=== PATIENT | female | born 1955 | race Caucasian/White ===

== ENCOUNTER 2016-08-09 23:49 | Emergency (ER) | payer OTHER ==
[~2016-08-09] VITALS: Ht 162.6 cm; Wt 77.6 kg
[~2016-08-09 23:49] MED LIST: AMOXICILLIN500 M2 PO; ANTIVERT 25 MG25 M1 PO; ASPIRIN EC81 M1 PO; ATORVASTATIN CA40 M1 PO; AUGMENTIN 875-1 EACH PO; BUDESONIDE3 MG PO; CLORAZEPATE DI7.5 M1 PO; CLORAZEPATE DI7.5 MG PO; DOXYCYCLINE100 MG PO; DULOXETINE HCL20 MG PO; DULOXETINE HCL30 MG PO; FERROUS SULFAT324 M1 PO; FLEXERIL10 MG PO; FOLIC ACID 1 MG PO; GABAPENTIN600 M1 PO; HCTZ/TRIAMTEREN1 TA3 PO; KETOROLAC TROME10 M1 PO; LYRICA25 M1 PO; MEDROL DOSEPAK1 PAC PO; MEDROL4 M2 PO; MOTRIN 600 MG600 MG PO; NEURONTIN300 M1 PO; NORCO 5-325 TA1 EACH PO; OSCAL ULTRA 6001 TAB PO; PANTOPRAZOLE SO40 M1 PO; PANTOPRAZOLE SO40 MG PO; PREDNISOLO15 MG/5 M4 PO; PROMETH/CODEIN120 ML PO; TOBRADEX OPH SOL5 ML OP; TORADOL10 MG PO; TRAMADOL HCL50 M1 PO; TRAMADOL50 MG PO; TRIAMTERENE/HCT1 TAB PO; TYLENOL325 MG PO; VENTOLIN HFA18 GM PO; VICODIN 5-3001 EACH PO; ZITHROMAX Z PA250 MG PO; ZITHROMAX250 M2 PO; ZOFRAN ODT4 MG SL; ZOFRAN4 M2 SL; ZOFRAN4 MG PO; [UNRECOGNIZED DRUG - OTHER] PO
--- NOTE | 2016-08-10 01:27 | ED GENERAL ADULT ---
History of Present Illness General Chief Complaint: General Adult Stated Complaint: C/O +N WEAKNESS X'S 2 HRSFAMILY QUESTION ? FLU Source: patient Exam Limitations: no limitations Vital Signs & Intake/Output Vital Signs & Intake/Output Vital Signs Date Time Temp Pulse Resp B/P Pulse O2 O2 Flow FiO2 Ox Delivery Rate 08/10 0351 98.8 89 18 138/84 96 Room Air 08/10 0203 93 08/10 0051 99.9 102 20 137/83 95 Room Air Allergies Coded Allergies: NO KNOWN ALLERGIES (12/08/15) Reconcile Medications Amoxicillin/Potassium Clav (Augmentin 875-125 Tablet) 875 MG-125 MG TABLET 1 TAB PO BID bronchitis Azithromycin (Zithromax) 250 MG TABLET 1 DP PO AD URI 2 the first day followed by 1 for days 2-5 Duloxetine HCl 30 MG CAPSULE.DR 1 CAP PO BEDTIME Neuropathy Gabapentin 600 MG TABLET 1 TAB PO TID Neuropathy Ibuprofen 800 MG TABLET 1 TAB PO TID body aches/fever Ketorolac Tromethamine 10 MG TABLET 1 TAB PO Q6P PRN BREAKTHROUGH PAIN Ondansetron (Zofran Odt) 4 MG TAB.RAPDIS 1 TAB SL TID nausea Pantoprazole Sodium 40 MG TABLET.DR 1 TAB PO DAILY GERD (Reported) Triage Note: 61yo FEMALE TO TRIAGE W/CO NAUSEA, CHILLS X 2 HRS. ALSO SOME BURNING WITH URINATION TONITE. Triage Nurses Notes Reviewed? yes Onset: Gradual Duration: day(s): Timing: recent history Injury Environment: home Severity: moderate Modifying Factors: Improves With: rest. Associated Symptoms: cough HPI: 61-year-old woman in prior good health presents with one-day history of body aches chills cough with small amount of phlegm that started yesterday evening. She notes that she smokes a half pack per day which has decreased. She is otherwise well has no chest pain diarrhea nausea vomiting. Past History Travel History Traveled to [place] past 21 day No Medical History Any Pertinent Medical History? see below for history Neurological: NEUROPATHY EENT: NONE Cardiovascular: NONE Respiratory: NONE Gastrointestinal: Crohn's disease, GERD Hepatic: NONE Renal: NONE Musculoskeletal: chronic back pain Psychiatric: NONE Endocrine: NONE Blood Disorders: NONE Cancer(s): NONE History of MRSA: No History of VRE: No History of CDIFF: No Surgical History Surgical History: COLON RESECTION Psychosocial History Who do you live with Family What is your primary language Bahraini Tobacco Use: Current Daily Use Daily Tobacco Use Amount/Type: => 5 Cigarettes daily Family History Family History, If Any: Relation not specified for: *No pertinent family history Hx Contributory? No Review of Systems Review of Systems Constitutional: Reports: no symptoms. EENTM: Reports: no symptoms. Respiratory: Reports: no symptoms. Cardiovascular: Reports: no symptoms. GI: Reports: no symptoms. Genitourinary: Reports: no symptoms. Musculoskeletal: Reports: no symptoms. Skin: Reports: no symptoms. Neurological/Psychological: Reports: no symptoms. Hematologic/Endocrine: Reports: no symptoms. Immunologic/Allergic: Reports: no symptoms. All Other Systems: Reviewed and Negative Physical Exam Physical Exam General Appearance: well developed/nourished, mild distress Head: atraumatic, normal appearance Eyes: Bilateral: normal appearance. Ears, Nose, Throat: normal pharynx, normal ENT inspection Neck: normal inspection, supple, full range of motion Respiratory: normal breath sounds, chest non-tender, no respiratory distress, quiet respiration, lungs clear Cardiovascular: regular rate/rhythm Gastrointestinal: normal bowel sounds, soft, non-tender, no organomegaly Back: normal inspection, normal range of motion Extremities: normal inspection, normal capillary refill, normal range of motion, no edema Neurologic/Psych: no motor/sensory deficits, awake, alert, oriented x 3 Skin: intact, normal color, warm/dry Core Measures ACS in differential dx? No CVA/TIA Diagnosis: No Severe Sepsis Present: No Septic Shock Present: No Progress Differential Diagnoses I considered the following diagnoses in my evaluation of the patient: viral syndrome versus bronchitis versus other Plan of Care: Orders Procedure Date/time Status URINALYSIS 08/10 0052 Complete RAPID VIRAL INFLUENZA A 08/09 2353 Complete Laboratory Tests 08/10/16 0100: Urinalysis LIGHT H, Urine Color YEL, Urine Clarity CLEAR, Urine pH 6.5, Ur Specific [place] 1.025, Urine Protein TRACE H, Urine Ketones NEG, Urine Nitrite NEG, Urine Bilirubin NEG, Urine Urobilinogen 0.2, Ur Leukocyte Esterase NEG, Ur Microscopic SEDIMENT EXAMINED, Urine RBC 1-3, Ur Epithelial Cells FEW, Urine Hemoglobin MOD H, Urine Glucose NEG Initial ED EKG: none Departure Departure Disposition: HOME OR SELF CARE Condition: Stable Clinical Impression Primary Impression: Bronchitis Secondary Impressions: Fever, Myalgia Referrals: JAMILAH TONG,RUPINDER York (PCP/Family) Departure Forms: Customer Survey General Discharge Information Prescriptions: Current Visit Scripts Amoxicillin/Potassium Clav (Augmentin 875-125 Tablet) 1 TAB PO BID #20 TAB Ibuprofen 1 TAB PO TID #30 TAB Ref 1 Ondansetron (Zofran Odt) 1 TAB SL TID #10 TAB Comments influenza negative. Critical Care Note Critical Care Note Critical Care Time: non-applicable
[2016-08-10] MEDS ORDERED: IBUPROFEN800 M1 PO (01:49)
[2016-08-10] MEDS ORDERED: AUGMENTIN 875-1 EACH PO (01:49)
[2016-08-10] MEDS ORDERED: ZOFRAN ODT4 M1 SL (01:50)
[2016-08-10 03:51] VITALS: BP 138/84
== END 2016-08-10 03:51 ==
LOC: ERH 23:49
DX: J40 Bronchitis, not specified as acute or chronic (principal); R50.9 Fever, unspecified; M79.1 Myalgia; Z72.0 Tobacco use
CPT/HCPCS: 1263; 1395; 81001; 87804; 87804-59; 96372; J1885; J3101; J3490

== ENCOUNTER 2016-09-17 11:24 | Emergency (ER) | payer OTHER ==
[~2016-09-17] VITALS: Ht 162.6 cm; Wt 77.6 kg
[~2016-09-17 11:24] MED LIST changes: +IBUPROFEN800 M1 PO; +ZOFRAN ODT4 M1 SL
[2016-09-17 11:34] VITALS: BP 108/70
--- NOTE | 2016-09-17 11:45 | ED UPPER/LOWER EXTREMITY COMPL ---
History of Present Illness General Chief Complaint: Lower Extremity Problems Stated Complaint: BILAT LEG PAIN Source: patient, family, old records Exam Limitations: no limitations Vital Signs & Intake/Output Vital Signs & Intake/Output Vital Signs Date Time Temp Pulse Resp B/P Pulse O2 O2 Flow FiO2 Ox Delivery Rate 09/17 1134 97.0 85 20 108/70 96 Room Air Allergies Coded Allergies: NO KNOWN ALLERGIES (09/17/16) Reconcile Medications Amoxicillin/Potassium Clav (Augmentin 875-125 Tablet) 875 MG-125 MG TABLET 1 TAB PO BID bronchitis Azithromycin (Zithromax) 250 MG TABLET 1 DP PO AD URI 2 the first day followed by 1 for days 2-5 Azithromycin (Zithromax) 250 MG TABLET 1 DP PO AD uri 2 the first day followed by 1 for days 2-5 Cyclobenzaprine HCl 5 MG TABLET 1 TAB PO TIDPRN PRN pain Duloxetine HCl 30 MG CAPSULE.DR 1 CAP PO BEDTIME Neuropathy Gabapentin 600 MG TABLET 1 TAB PO TID Neuropathy Ibuprofen 800 MG TABLET 1 TAB PO TID body aches/fever Ketorolac Tromethamine 10 MG TABLET 1 TAB PO Q6P PRN BREAKTHROUGH PAIN Methylprednisolone. (Medrol) 4 MG TAB.DS.PK 1 DP PO AD radiculopathy 6 on day 1 then reduce by one tablet daily until gone Ondansetron (Zofran Odt) 4 MG TAB.RAPDIS 1 TAB SL TID nausea Pantoprazole Sodium 40 MG TABLET.DR 1 TAB PO DAILY GERD (Reported) Triage Note: TRIAGE: PT TO ER WITH DAUGHTER C/C BLE PAIN FROM FEET UP TO THIGH. ONSET THIS MORNING, CONSTANT SINCE ONSET. DAUGHTER DESCRIBES A "DAYNA HORSE". TOOK TYLENOL PERSONAL COMPANION, NO RELIEF NOTED. DENIES INJURY. DENIES REDNESS. THINKS IT MIGHT BE SWOLLEN. Triage Nurses Notes Reviewed? yes Onset: Gradual Duration: week(s):, intermittent, waxing and waning Timing: recent history Severity: moderate Severity Numbers: 5 Pain/Injury Location: Bilateral: Thigh. Method of Injury: unknown No Modifying Factors: none Associated Symptoms: tingling, aching crampy pain HPI: 61-year-old female with history of peripheral neuropathy on gabapentin and Cymbalta presents with her daughter for evaluation complaining of bilateral lower extremity cramping aching pain intermittent in nature nature waxing and waning sudden in onset associated with lower back pain. The patient has been seen numerous times in the past for similar symptoms and is scheduled to see her neurologist at [facility] on . There is no recent injury trauma or fall. She describes the pain intermittently as a tightness feeling, denies numbness or tingling at this time. She states her lower back pain is worse with change in position better at rest denies his pain at this time pain at its worst is 5 out of 10. She denies any abdominal pain urinary symptoms no urinary or bowel incontinence. No nausea no vomiting. The patient is also requesting being seen for an upper respiratory infection which she's had for the past 1 week. She reports her nonproductive cough and rhinorrhea congestion. She took Tylenol last night for her pain she denies any swelling to her lower extremities no shortness of breath (KYLAH RIDLEY) Past History Travel History Traveled to [place] past 21 day No Medical History Any Pertinent Medical History? 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 No (KYLAH RIDLEY) Review of Systems Review of Systems Constitutional: Reports: see HPI. All Other Systems: Reviewed and Negative Comments Review of systems: See HPI, All other systems negative. Constitutional, no chills no fever, no malaise HEENT: No visual changes no sore throat no congestion Cardiovascular: No chest pain , no palpitation Skin, no jaundice no rashes, no change in skin Respiratory: No dyspnea cough no sputum GI: No nausea no vomiting, no diarrhea : No dysuria Muscle skeletal: joint pain, no joint swelling, back pain, no neck pain, Neurologic: No numbness no headache Psych: No stress Heme/endocrine: No bruising no bleeding Immunology: No lymphadenopathy (KYLAH RIDLEY) Physical Exam Physical Exam General Appearance: well developed/nourished, no apparent distress, alert, awake Comments: Well-developed well-nourished person in no acute distress HEENT: Normal EENT exam; PERRL, EOMI, no nystagmus. HEAD is atraumatic. moist mucous membranes. Neck: Supple, no lymphadenopathy, normal range of motion without pain or tenderness Back: Nontender, no midline or n paralumbar tendernesso CVA tenderness. Full range of motion Cardiovascular: Regular rate and rhythms no murmurs rubs Respiratory: No respiratory distress. Patient speaking in full complete sentences. Breath sounds clear to auscultation bilaterally: NO W/R/R Abdomen: Soft, nontender nondistended, no appreciable organomegaly. Normal bowel sounds. No rebound/guarding, No ascites. Extremity: No edema, full range of motion of extremities, normal and equal pulses bilaterally, 5 out of 5 strength noted to bilateral upper and lower extremities negative straight leg raise b/l, neg homans sign Neuro: Alert oriented x3, motor sensory normal, There were no obvious focal neurologic abnormalities. Skin: No appreciable rash on exposed skin, skin is warm and dry. Psych: Mood and affect is normal, memory and judgment is normal. (KYLAH RIDLEY) Progress Differential Diagnosis: arterial insufficiency, cellulitis, compartment syndrome , DVT, fracture, gout, sprain, tendon injury, radiculopathy, uri, bronchitis, pna, neuropathy Plan of Care: Current Medications Sig/Triston Start time Last Medication Dose Stop Time Status Admin Morphine Sulfate 2 MG ONCE ONE 09/17 1214 AC (Morphine) 09/17 1216 Old records are reviewed patient and her daughters state that when she was last here she was given a shot of morphine which improved her symptoms patient is ambulatory with steady gait advise close follow-up with neurologist on there is no peripheral edema, there is no calf tenderness shortness of breath I do not believe she requires a workup at this time which the family the patient and her agreement with prescriptions were called into her pharmacy they feel comfortable this plan (KYLAH RIDLEY) Departure Departure Time of Disposition: 1201 Disposition: HOME OR SELF CARE Condition: Stable Clinical Impression Primary Impression: Neuropathy Secondary Impressions: Lumbar strain, URI (upper respiratory infection) Referrals: JAMILAH TONG,RUPINDER York (PCP/Family) Additional Instructions: Follow-up with your primary care physician this week as well as neurologist as scheduled on . Z-Jorge as directed, Medrol Dosepak and Flexeril as discussed rest interchange ice and heat These prescriptions were sent to your pharmacy Departure Forms: Customer Survey General Discharge Information Prescriptions: Current Visit Scripts Azithromycin (Zithromax) 1 DP PO AD #6 TAB 2 the first day followed by 1 for days 2-5 Methylprednisolone. (Medrol) 1 DP PO AD #1 DP 6 on day 1 then reduce by one tablet daily until gone Cyclobenzaprine HCl 1 TAB PO TIDPRN PRN pain #15 TAB (KYLAH RIDLEY) PA/ELECTRICIAN SUBSTATION SUPERVISOR Co-Sign Statement Statement: ED Attending supervision documentation- [] I saw and evaluated the patient. I have also reviewed all the pertinent lab results and diagnostic results. I agree with the findings and the plan of care as documented in the PA's/ELECTRICIAN SUBSTATION SUPERVISOR's documentation. [X] I have reviewed the ED Record and agree with the PA's/ELECTRICIAN SUBSTATION SUPERVISOR's documentation. [] Additions or exceptions (if any) to the PAs/ELECTRICIAN SUBSTATION SUPERVISOR's note and plan are summarized below: [] (JASON TONG,NATHAN)
[2016-09-17] MEDS ORDERED: CYCLOBENZAPRINE5 M2 PO (12:04)
[2016-09-17] MEDS ORDERED: ZITHROMAX250 M2 PO (12:04)
[2016-09-17] MEDS ORDERED: MEDROL4 M2 PO (12:04)
== END 2016-09-17 12:14 ==
LOC: ERH 11:24
DX: S39.012A Strain of muscle, fascia and tendon of lower back, initial encounter (principal); G62.9 Polyneuropathy, unspecified; J06.9 Acute upper respiratory infection, unspecified; Z72.0 Tobacco use
CPT/HCPCS: 96372

== ENCOUNTER 2016-09-24 23:30 | Emergency (ER) | payer OTHER ==
[~2016-09-24] VITALS: Ht 162.6 cm; Wt 77.6 kg
[~2016-09-24 23:30] MED LIST changes: +CYCLOBENZAPRINE5 M2 PO
[2016-09-24 23:41] VITALS: BP 151/82
--- NOTE | 2016-09-25 00:29 | ED NECK/BACK PAIN COMPLAINT ---
History of Present Illness General Chief Complaint: Low Back Pain/Injury Stated Complaint: BACK APIN Source: patient, family, old records Exam Limitations: no limitations Vital Signs & Intake/Output Vital Signs & Intake/Output Vital Signs Date Time Temp Pulse Resp B/P Pulse O2 O2 Flow FiO2 Ox Delivery Rate 09/24 2341 97.1 76 18 151/82 96 Room Air ED Intake and Output 09/25 0000 09/24 1200 Intake Total Output Total Balance Patient 171 lb Weight Allergies Coded Allergies: NO KNOWN ALLERGIES (09/17/16) Reconcile Medications Amoxicillin/Potassium Clav (Augmentin 875-125 Tablet) 875 MG-125 MG TABLET 1 TAB PO BID bronchitis Azithromycin (Zithromax) 250 MG TABLET 1 DP PO AD URI 2 the first day followed by 1 for days 2-5 Azithromycin (Zithromax) 250 MG TABLET 1 DP PO AD uri 2 the first day followed by 1 for days 2-5 Cyclobenzaprine HCl 5 MG TABLET 1 TAB PO TIDPRN PRN pain Duloxetine HCl 30 MG CAPSULE.DR 1 CAP PO BEDTIME Neuropathy Gabapentin 600 MG TABLET 1 TAB PO TID Neuropathy Ibuprofen 800 MG TABLET 1 TAB PO TID body aches/fever Ketorolac Tromethamine 10 MG TABLET 1 TAB PO Q6P PRN BREAKTHROUGH PAIN Methylprednisolone. (Medrol) 4 MG TAB.DS.PK 1 DP PO AD radiculopathy 6 on day 1 then reduce by one tablet daily until gone Ondansetron (Zofran Odt) 4 MG TAB.RAPDIS 1 TAB SL TID nausea Pantoprazole Sodium 40 MG TABLET.DR 1 TAB PO DAILY GERD (Reported) Triage Note: PT FROM HOME C/O LOWER LUMBAR/SCIATIC PAIN. PT STATES THAT SCIATIC PAIN IN BOTH LEGS BEGAN 6MONTHS TO 1 YEAR AGO. PT WAS SEEN BY NEUROLOGIST WHO STATED IT WAS SCIATIC PAIN AND GAVE PT MOTRIN. PT STATES WORSE PAIN THAN EVER. PT IN NO ACUTE DISTRESS IN TRIAGE. Triage Nurses Notes Reviewed? yes HPI: Patient presents for evaluation of sciatica pain. Patient states that initially she was being treated by a neurologist for neuropathy. She was placed on gabapentin and Cymbalta. She was evaluated in the emergency department last week and given a shot of Toradol with improvement. She is describing a sharp bilateral leg pain left side greater than right. She was evaluated by her neurologist only a few days ago and she has been diagnosed with sciatica. Since then she has been taking ibuprofen without improvement. Patient denies any associated urinary or fecal incontinence or urinary retention. She denies progression of pain. She denies any associated paresthesias. There has been no associated fever or cold symptoms. There has been no recent trauma. The patient's daughter states that she has had "every test", including an MRI scan last year. Past History Travel History Traveled to [place] past 21 day No Medical History Any Pertinent Medical History? 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 No Review of Systems Review of Systems Constitutional: Reports: no symptoms. Eyes: Reports: no symptoms. Ears, Nose, Throat, Mouth: Reports: no symptoms. Respiratory: Reports: no symptoms. Cardiovascular: Reports: no symptoms. Gastrointestinal/Abdominal: Reports: no symptoms. Musculoskeletal: Reports: see HPI. Skin: Reports: no symptoms. Neurological/Psychological: Reports: no symptoms. All Other Systems: Reviewed and Negative Physical Exam Physical Exam Neck: SEE BELOW Comments: Gen.: Well-nourished, well-developed, no acute respiratory distress. Head: Normocephalic, atraumatic. Eyes: Normal inspection bilaterally Ears: Normal inspection bilaterally Nose: Normal inspection Throat/mouth : Moist mucosa Neck: Supple, full range of motion, no goiter Heart: Regular rate and rhythm Lungs: Quiet respirations Chest: Nontender Back: Normal range of motion, nontender. Patient bends to 90. Abdomen: Soft, nontender, nondistended Extremities: Normal range of motion grossly, dorsalis pedis pulses equal, no cyanosis clubbing or edema, lower extremities nontender. No saddle paresthesias. Sensation intact to light touch and deep tendon reflexes normal to both lower extremities. Lower extremity strength normal. Neurologic: Cranial nerves grossly intact, speech is clear Skin: warm and dry Psychiatric: Calm, cooperative, no apparent delusions or hallucinations Progress Differential Diagnosis: cauda equina syn, herniated disc, myofascial strain Plan of Care: Current Medications Sig/Triston Start time Last Medication Dose Stop Time Status Admin Acetaminophen/ 1 TAB ONCE ONE 09/25 99 UNVr Hydrocodone Bitart 09/25 100 (Vicodin) Ketorolac 30 MG ONCE ONE 09/25 99 UNVr Tromethamine 09/25 100 (Toradol) Comments: Patient denies cancer unexplained weight loss or immunosuppression, denies IV drug abuse urinary tract infection or recent trauma. Denies pain increased by rest or associated fever. Denies bowel or bladder incontinence or urinary retention. Denies saddle paresthesias or major motor weakness. Departure Departure Disposition: HOME OR SELF CARE Condition: Stable Clinical Impression Primary Impression: Sciatica Qualifiers: Laterality: bilateral Qualified Codes: M54.31 - Sciatica, right side; M54.32 - Sciatica, left side Referrals: JAMILAH TONG,RUPINDER York (PCP/Family) Additional Instructions: stop taking the ibuprofen. Take Toradol and [place] as prescribed. Follow-up with your primary care doctor and control systems specialist as soon as possible for reevaluation. Return if any concerns or sudden worsening. Thank you for choosing the [facility] Emergency Department for your care. It was a pleasure to serve you today. Micheal Teresa M.D. [facility] Departure Forms: Customer Survey General Discharge Information Prescriptions: Current Visit Scripts Ketorolac Tromethamine 1 TAB PO Q6P PRN pain #16 TAB patient received IM Toradol in the emergency department Hydrocodone/Acetaminophen ([place] 5-325 Tablet) 1-2 TAB PO Q6P PRN PAIN #16 TAB
[2016-09-25] MEDS ORDERED: KETOROLAC TROME10 M1 PO (00:54)
[2016-09-25] MEDS ORDERED: NORCO 5-325 TA1 EACH PO (00:54)
== END 2016-09-25 01:04 ==
LOC: ERH 23:30
DX: M54.42 Lumbago with sciatica, left side (principal)
CPT/HCPCS: 96372

== ENCOUNTER 2016-10-29 12:32 | Emergency (ER) | payer OTHER ==
[~2016-10-29] VITALS: Ht 162.6 cm; Wt 77.6 kg
[2016-10-29 12:44] VITALS: BP 109/74
[2016-10-29] MEDS ORDERED: TESSALON PERLE100 M1 PO (14:23)
[2016-10-29] MEDS ORDERED: NAPROSYN500 M1 PO (14:23)
[2016-10-29] MEDS ORDERED: MEDROL4 M2 PO (14:23)
--- NOTE | 2016-10-29 14:23 | ED NECK/BACK PAIN COMPLAINT ---
History of Present Illness General Chief Complaint: Low Back Pain/Injury Stated Complaint: LOW BACK PAIN Source: patient Exam Limitations: no limitations Vital Signs & Intake/Output Vital Signs & Intake/Output Vital Signs Date Time Temp Pulse Resp B/P Pulse O2 O2 Flow FiO2 Ox Delivery Rate 10/29 1244 97.3 88 16 109/74 97 Room Air Allergies Coded Allergies: NO KNOWN ALLERGIES (09/17/16) Triage Note: PT STATES SHE HAD AN [employer] ON FRIDAY AND SHE OVER DID IT. PT NOW HAVING LOWER PAIN INTO HER RIGHT LEG. Triage Nurses Notes Reviewed? yes HPI: This patient is a 61-year-old female who presented to the emergency department today for evaluation of lower back pain. The patient reported that she was standing a lot on and, "overdid it." She reported that she has pain in her left lower back that radiates down her left leg. She reported the pain is constant and gets up to a 7 out of 10. The pain is sharp. Worse with certain movements. Patient also reported that she has a nonproductive cough. She denied any urinary burning, urgency, frequency, blood in the urine, bowel or bladder incontinence, felt paresthesia, abdominal pain, nausea, vomiting, or any numbness or tingling in her extremities. The patient denied any chest pain or difficulty breathing. (VINCENT WALLER,GLORIA) Reconcile Medications Amoxicillin/Potassium Clav (Augmentin 875-125 Tablet) 875 MG-125 MG TABLET 1 TAB PO BID bronchitis Azithromycin (Zithromax) 250 MG TABLET 1 DP PO AD URI 2 the first day followed by 1 for days 2-5 Azithromycin (Zithromax) 250 MG TABLET 1 DP PO AD uri 2 the first day followed by 1 for days 2-5 Benzonatate (Tessalon Perle) 100 MG CAPSULE 1 CAP PO TID PRN COUGH Cyclobenzaprine HCl 5 MG TABLET 1 TAB PO TIDPRN PRN pain Duloxetine HCl 30 MG CAPSULE. 1 CAP PO BEDTIME Neuropathy Gabapentin 600 MG TABLET 1 TAB PO TID Neuropathy Hydrocodone/Acetaminophen ([place] 5-325 Tablet) 5 MG-325 MG TABLET 1-2 TAB PO Q6P PRN PAIN Ibuprofen 800 MG TABLET 1 TAB PO TID body aches/fever Ketorolac Tromethamine 10 MG TABLET 1 TAB PO Q6P PRN pain patient received IM Toradol in the emergency department Ketorolac Tromethamine 10 MG TABLET 1 TAB PO Q6P PRN BREAKTHROUGH PAIN Methylprednisolone. (Medrol) 4 MG TAB.DS.PK 1 DP PO AD radiculopathy 6 on day 1 then reduce by one tablet daily until gone Methylprednisolone. (Medrol) 4 MG TAB.DS.PK 1 DP PO AD BACK PAIN 6 on day 1 then reduce by one tablet daily until gone Naproxen (Naprosyn) 500 MG TABLET 1 TAB PO BID PRN PAIN Ondansetron (Zofran Odt) 4 MG TAB.RAPDIS 1 TAB SL TID nausea Pantoprazole Sodium 40 MG TABLET.DR 1 TAB PO DAILY GERD (Reported) (GWEN TONG,LORNA) Past History Travel History Traveled to [place] past 21 day No Medical History Any Pertinent Medical History? 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 No (GLORIA KAUR PA-C) Review of Systems Review of Systems Constitutional: Reports: no symptoms. Eyes: Reports: no symptoms. Ears, Nose, Throat, Mouth: Reports: no symptoms. Respiratory: Reports: see HPI. Cardiovascular: Reports: no symptoms. Gastrointestinal/Abdominal: Reports: no symptoms. Musculoskeletal: Reports: see HPI. Skin: Reports: no symptoms. Neurological/Psychological: Reports: no symptoms. All Other Systems: Reviewed and Negative (GLORIA KAUR PA-C) Physical Exam Physical Exam Neck: normal inspection, supple, full range of motion, normal alignment, no midline tenderness Comments: Well-developed well-nourished person in no acute distress HEENT: Normal EENT exam, head normocephalic, moist mucous membranes Pupils equally round and reactive to light. Back: Normal inspection. Antalgic gait. No midline tenderness. Left lumbar paraspinal musculature tenderness. Muscular spasm noted. Negative straight leg raise bilaterally Cardiovascular: Regular rate and rhythm with no murmurs Respiratory: Chest nontender. No respiratory distress. Breath sounds clear to auscultation bilaterally with no wheezes, rales, rhonchi Abdomen: Soft, nontender and nondistended Extremity: Normal and equal pulses. Neuro: Alert oriented x3, cranial nerves II through XII grossly intact. Skin: No appreciable rash on exposed skin, skin is warm and dry. Psych: Mood and affect is normal (GLORIA KAUR PA-C) Progress Differential Diagnosis: aortic dissection, cauda equina syn, herniated disc, myofascial strain, pyelo/UTI, sciatica, spinal cord inj, thoracic outlet syn, T/ L spine injury, ureterolithiasis Plan of Care: Laboratory Tests 10/29/16 1240: Urine Color Cancelled, Urine Clarity Cancelled, Urine pH Cancelled, Ur Specific [place] Cancelled, Urine Protein Cancelled, Urine Ketones Cancelled, Urine Nitrite Cancelled, Urine Bilirubin Cancelled, Urine Urobilinogen Cancelled, Ur Leukocyte Esterase Cancelled, Ur Microscopic Cancelled, Urine Hemoglobin Cancelled, Urine Glucose Cancelled Departure Departure Disposition: HOME OR SELF CARE Condition: Stable Clinical Impression Primary Impression: Low back strain Qualifiers: Encounter type: initial encounter Qualified Code: S39.012A - Strain of muscle, fascia and tendon of lower back, initial encounter Referrals: JAMILAH TONG,RUPINDER York (PCP/Family) Additional Instructions: Take medication for cough as prescribed. Take Medrol Dosepak as prescribed. Take medication for pain as directed. Follow-up with your primary care physician. Return for any worsening symptoms or concerns. Departure Forms: Customer Survey General Discharge Information Prescriptions: Current Visit Scripts Benzonatate (Tessalon Perle) 1 CAP PO TID PRN COUGH #10 CAP Methylprednisolone. (Medrol) 1 DP PO AD #1 DP 6 on day 1 then reduce by one tablet daily until gone Naproxen (Naprosyn) 1 TAB PO BID PRN PAIN #20 TAB (GLORIA KAUR PA-C) PA/CHANCERY CLERK Co-Sign Statement Statement: ED Attending supervision documentation- x I saw and evaluated the patient. I have also reviewed all the pertinent lab results and diagnostic results. I agree with the findings and the plan of care as documented in the PA's/CHANCERY CLERK's documentation. [] I have reviewed the ED Record and agree with the PA's/CHANCERY CLERK's documentation. [] Additions or exceptions (if any) to the PAs/CHANCERY CLERK's note and plan are summarized below: [] (GWEN TONG,LORNA)
== END 2016-10-29 14:53 ==
LOC: ERH 12:32
DX: S39.012A Strain of muscle, fascia and tendon of lower back, initial encounter (principal); X58.XXXA Exposure to other specified factors, initial encounter
CPT/HCPCS: 96372; J1885

== ENCOUNTER 2016-11-23 09:31 | Emergency (ER) | payer OTHER ==
[~2016-11-23 09:31] MED LIST changes: +NAPROSYN500 M1 PO; +TESSALON PERLE100 M1 PO
--- NOTE | 2016-11-23 09:53 | ED GI/GU/ABDOMINAL COMPLAINT ---
History of Present Illness General Chief Complaint: General Adult Stated Complaint: VOMITING, DIZZY Source: patient Exam Limitations: no limitations Vital Signs & Intake/Output Vital Signs & Intake/Output Vital Signs Date Time Temp Pulse Resp B/P B/P Pulse O2 O2 Flow FiO2 Mean Ox Delivery Rate 11/23 1130 96.8 68 18 145/69 97 Room Air 11/23 1017 95 Room Air 11/23 0938 96.8 80 22 126/83 97 Room Air Allergies Coded Allergies: NO KNOWN ALLERGIES (09/17/16) Reconcile Medications Amoxicillin/Potassium Clav (Augmentin 875-125 Tablet) 875 MG-125 MG TABLET 1 TAB PO BID bronchitis Azithromycin (Zithromax) 250 MG TABLET 1 DP PO AD URI 2 the first day followed by 1 for days 2-5 Azithromycin (Zithromax) 250 MG TABLET 1 DP PO AD uri 2 the first day followed by 1 for days 2-5 Benzonatate (Tessalon Perle) 100 MG CAPSULE 1 CAP PO TID PRN COUGH Cyclobenzaprine HCl 5 MG TABLET 1 TAB PO TIDPRN PRN pain Duloxetine HCl 30 MG CAPSULE.DR 1 CAP PO BEDTIME Neuropathy Gabapentin 600 MG TABLET 1 TAB PO TID Neuropathy Hydrocodone/Acetaminophen ([place] 5-325 Tablet) 5 MG-325 MG TABLET 1-2 TAB PO Q6P PRN PAIN Ibuprofen 800 MG TABLET 1 TAB PO TID body aches/fever Ketorolac Tromethamine 10 MG TABLET 1 TAB PO Q6P PRN pain patient received IM Toradol in the emergency department Ketorolac Tromethamine 10 MG TABLET 1 TAB PO Q6P PRN BREAKTHROUGH PAIN Methylprednisolone. (Medrol) 4 MG TAB.DS.PK 1 DP PO AD radiculopathy 6 on day 1 then reduce by one tablet daily until gone Methylprednisolone. (Medrol) 4 MG TAB.DS.PK 1 DP PO AD BACK PAIN 6 on day 1 then reduce by one tablet daily until gone Naproxen (Naprosyn) 500 MG TABLET 1 TAB PO BID PRN PAIN Ondansetron (Zofran Odt) 4 MG TAB.RAPDIS 1 TAB SL TID nausea Pantoprazole Sodium 40 MG TABLET.DR 1 TAB PO DAILY GERD (Reported) Triage Note: PER DAUGHTER, PT FEELS DIZZY AFTER VOMITING PER PT ATE FRIED FOOD AND DID NOT TSKE PROTONIX, FEELS LIKE VOMITING ALL THE PAIN Triage Nurses Notes Reviewed? yes ? n Is pt currently ? No HPI: Ms. Wolf is a 61 yo f w/ GERD, Crohn's, neuropathy, chronic back pain and neuropathy presenting to the emergency department for vomiting and dizziness. Patient states she ate a lot of fried food last night and did not take her per contacts. She vomited one time last night and one time this morning. When she woke up this morning she felt quite dehydrated and dizzy. She endorses some nausea at this point in time. No blood in the vomitus. No diarrhea or constipation. Last BM was 2 days ago and was normal. Patient's daughter states that she comes to the ED for everything she did not feel that this warranted presentation to the emergency department but her mom insisted. Patient denies fever, chills, chest pain, cough, shortness of breath, abdominal pain. (EVANGELINA QUINONES MD) Past History Travel History Traveled to [place] past 21 day No Medical History Any Pertinent Medical History? 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 No (EVANGELINA QUINONES MD) Review of Systems Review of Systems Constitutional: Reports: weakness. EENTM: Reports: no symptoms. Respiratory: Reports: no symptoms. Cardiovascular: Reports: no symptoms. GI: Reports: abdominal pain, nausea, vomiting. Denies: constipation, diarrhea. Genitourinary: Reports: no symptoms. Musculoskeletal: Reports: no symptoms. Skin: Reports: no symptoms. Neurological/Psychological: Reports: no symptoms. Hematologic/Endocrine: Reports: no symptoms. Immunologic/Allergic: Reports: no symptoms. All Other Systems: Reviewed and Negative (EVANGELINA QUINONES MD) Physical Exam Physical Exam General Appearance: well developed/nourished, no apparent distress, alert, awake , comfortable Head: atraumatic, normal appearance Eyes: Bilateral: normal appearance, PERRL, EOMI. Ears, Nose, Throat, Mouth: hearing grossly normal, moist mucous membrane Neck: normal inspection, supple, full range of motion, normal alignment Respiratory: normal breath sounds, chest non-tender, no respiratory distress Cardiovascular: regular rate/rhythm Gastrointestinal: normal bowel sounds, soft, non-tender Back: normal inspection, normal range of motion Extremities: normal range of motion Neurologic/Psych: no motor/sensory deficits, awake, alert, oriented x 3, normal gait, normal mood/affect Skin: intact, normal color, warm/dry Core Measures ACS in differential dx? No Severe Sepsis Present: No Septic Shock Present: No (EVANGELINA QUINONES MD) Progress Differential Diagnosis: diverticulitis, hernia, Rosa-Lisandro tear, pancreatitis, peptic ulcer, PUD/GERD, UTI/pyelo Plan of Care: Orders Procedure Date/time Status EKG 11/23 0940 Active Patient is generally well-appearing 61-year-old female. Only had 2 episodes of vomiting, one yesterday when today. Woke up today with some dizziness. Likely related to dehydration. Patient's physical exam is otherwise unremarkable. No evidence of acute distress. Plan to administer some Zofran and Toradol. Patient will be given 1 L of fluids for IV hydration. Nausea improved with Zofran. No pain at this point in time. Patient has steady gait and is no longer nauseated. She is not experiencing any dizziness. Patient tolerated PO in ED without issues. Discharge home with follow-up with her primary care doctor. (EVANGELINA QUINONES MD) Initial ED EKG: normal axis, normal intervals, normal p-waves, normal QRS complex, normal sinus rhythm (EVANGELINA QUINONES MD) Departure Departure Time of Disposition: 1241 Disposition: HOME OR SELF CARE Condition: Stable Clinical Impression Primary Impression: Dizziness Secondary Impressions: Nausea & vomiting, Sciatic leg pain Referrals: JAMILAH TONG,RUPINDER York (PCP/Family) Additional Instructions: Please use an [id number] decongestant for your head cold. It will help to decrease your symptoms. You can use Motrin or Tylenol for the back pain and sciatic pain. Make sure he drinks plenty of fluids. Follow-up with her primary care doctor as needed. Departure Forms: Customer Survey General Discharge Information (JONI TONG,EVANGELINA) Resident Co-Sign Statement Statement: ED Attending supervision documentation- [X] I saw and evaluated the patient. I have also reviewed all the pertinent lab results and diagnostic results. I agree with the findings and the plan of care as documented in the Resident's documentation. [X] I have reviewed the ED Record and agree with the Resident's documentation. [] Additions or exceptions (if any) to the Resident's note and plan are summarized below: [] (ANDREW TONG,YUE York)
[2016-11-23 12:55] VITALS: BP 154/72
== END 2016-11-23 13:00 ==
LOC: ERH 09:31
DX: R42 Dizziness and giddiness (principal); R11.2 Nausea with vomiting, unspecified; M54.30 Sciatica, unspecified side
CPT/HCPCS: 93005; 93010; 96374; 96375; J1885; J2405

== ENCOUNTER 2017-01-05 22:55 | Emergency (ER) | payer OTHER ==
[~2017-01-05] VITALS: Ht 162.6 cm; Wt 77.6 kg
[2017-01-05] MEDS ORDERED: MEDROL4 M2 PO (23:42)
[2017-01-05] MEDS ORDERED: NAPROSYN500 M1 PO (23:42)
[2017-01-05] MEDS ORDERED: PROMETH-CODEIN 65 ML PO (23:42)
[2017-01-05] MEDS ORDERED: ZITHROMAX250 M2 PO (23:42)
--- NOTE | 2017-01-05 23:44 | ED GENERAL ADULT ---
History of Present Illness General Chief Complaint: General Adult Stated Complaint: "PER PT COLD, SCIATIC NERVE PAIN" Source: patient Exam Limitations: no limitations Vital Signs & Intake/Output Vital Signs & Intake/Output Vital Signs Date Time Temp Pulse Resp B/P B/P Pulse O2 O2 Flow FiO2 Mean Ox Delivery Rate 01/05 2301 97.0 80 16 155/83 96 Room Air ED Intake and Output 01/06 0000 01/05 1200 Intake Total Output Total Balance Patient 171 lb Weight Weight Reported by Patient Measurement Method Allergies Coded Allergies: NO KNOWN ALLERGIES (09/17/16) Reconcile Medications Amoxicillin/Potassium Clav (Augmentin 875-125 Tablet) 875 MG-125 MG TABLET 1 TAB PO BID bronchitis Azithromycin (Zithromax) 250 MG TABLET 1 DP PO AD BRONCHITIS 2 the first day followed by 1 for days 2-5 Azithromycin (Zithromax) 250 MG TABLET 1 DP PO AD URI 2 the first day followed by 1 for days 2-5 Azithromycin (Zithromax) 250 MG TABLET 1 DP PO AD uri 2 the first day followed by 1 for days 2-5 Benzonatate (Tessalon Perle) 100 MG CAPSULE 1 CAP PO TID PRN COUGH Cyclobenzaprine HCl 5 MG TABLET 1 TAB PO TIDPRN PRN pain Duloxetine HCl 30 MG CAPSULE.DR 1 CAP PO BEDTIME Neuropathy Gabapentin 600 MG TABLET 1 TAB PO TID Neuropathy Hydrocodone/Acetaminophen ([place] 5-325 Tablet) 5 MG-325 MG TABLET 1-2 TAB PO Q6P PRN PAIN Ibuprofen 800 MG TABLET 1 TAB PO TID body aches/fever Ketorolac Tromethamine 10 MG TABLET 1 TAB PO Q6P PRN pain patient received IM Toradol in the emergency department Ketorolac Tromethamine 10 MG TABLET 1 TAB PO Q6P PRN BREAKTHROUGH PAIN Methylprednisolone. (Medrol) 4 MG TAB.DS.PK 1 DP PO AD back pain 6 on day 1 then reduce by one tablet daily until gone Methylprednisolone. (Medrol) 4 MG TAB.DS.PK 1 DP PO AD radiculopathy 6 on day 1 then reduce by one tablet daily until gone Methylprednisolone. (Medrol) 4 MG TAB.DS.PK 1 DP PO AD BACK PAIN 6 on day 1 then reduce by one tablet daily until gone Naproxen (Naprosyn) 500 MG TABLET 1 TAB PO BID pain Naproxen (Naprosyn) 500 MG TABLET 1 TAB PO BID PRN PAIN Ondansetron (Zofran Odt) 4 MG TAB.RAPDIS 1 TAB SL TID nausea Pantoprazole Sodium 40 MG TABLET.DR 1 TAB PO DAILY GERD (Reported) Promethazine HCl/Codeine (Prometh-Codein 6.25-10 MG/5 Ml) 6.25 MG-10 MG/5 ML (5 ML) SYRUP 5 ML PO Q6P PRN COUGH Triage Note: TRIAGE: PT TO ED WITH EXACERBATED SCIATIC LOW BACK PAIN RADIATING DOWN LEFT LEG. PT HAS BEEN TREATED HERE IN THE PAST WITH IM TORADOL WITH VERY GOOD EFFICACY. STATES SHE HAS BEEN ON HER FEET MORE LATELY AND OVERDOING IT WHICH HAS CAUSED AN INCREASE IN PAIN. PT HAS BEEN GETTING MASSAGES LATELY TO ALSO HELP IMPROVE SCIATICA. AMBULATORY INDEPENDENTLY WITH STRONG STEADY GAIT. Triage Nurses Notes Reviewed? yes Onset: Abrupt Duration: day(s): Timing: recent history Injury Environment: home No Modifying Factors: none HPI: 61-year-old female comes into emergency room for further evaluation of cough congestion runny nose ear pain with yellow mucus production. Symptoms of a going on for the past few days. Patient reports associated sciatica pain. Patient has a history of sciatica. Patient has had MRIs as well as nerve conduction studies of her low back. Patient has received Toradol here in the past that has improved her symptoms. She denies any chest pain or shortness of breath. Denies any vomiting. Denies any other associated symptoms. (ULYSSES ZARAGOZA,LIZ) Past History Travel History Traveled to [place] past 21 day No Medical History Any Pertinent Medical History? 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 No (LIZ GUY) Review of Systems Review of Systems Constitutional: Reports: see HPI. EENTM: Reports: see HPI. Respiratory: Reports: no symptoms. Cardiovascular: Reports: no symptoms. GI: Reports: no symptoms. Genitourinary: Reports: no symptoms. Musculoskeletal: Reports: see HPI. Skin: Reports: no symptoms. Neurological/Psychological: Reports: no symptoms. Hematologic/Endocrine: Reports: no symptoms. Immunologic/Allergic: Reports: no symptoms. All Other Systems: Reviewed and Negative (LIZ GUY) Physical Exam Physical Exam General Appearance: well developed/nourished, no apparent distress, alert Head: atraumatic, normal appearance Eyes: Bilateral: normal appearance. Ears, Nose, Throat: normal pharynx, normal ENT inspection Neck: normal inspection Respiratory: normal breath sounds, no respiratory distress Cardiovascular: regular rate/rhythm Back: normal inspection, tenderness left lower back, 5 out of 5 strength in lower extremities, Extremities: normal capillary refill, normal range of motion Neurologic/Psych: awake, alert, oriented x 3, normal gait Skin: intact, normal color Core Measures ACS in differential dx? No CVA/TIA Diagnosis: No Severe Sepsis Present: No Septic Shock Present: No (LIZ GUY) Progress Differential Diagnoses I considered the following diagnoses in my evaluation of the patient: Sciatica, low back strain, herniated disc, bronchitis, pneumonia, breast or infection, otitis media, Plan of Care: 01/05/2017 11:58:01 PM Patient clinically looks well. Patient is in no apparent distress. Patient is nontoxic-appearing. Patient is resting comfortably in room. Sciatica is chronic for the patient. Other symptoms are consistent with bronchitis/upper respiratory infection. Take medications as prescribed. Follow-up with primary care doctor. Return if any other concerns worsening symptoms. Initial ED EKG: none (LIZ GUY) Departure Departure Disposition: HOME OR SELF CARE Condition: Stable Clinical Impression Primary Impression: Bronchitis Secondary Impressions: Sciatica Referrals: JAMILAH TONG,RUPINDER York (PCP/Family) Additional Instructions: Take promethazine with codeine as prescribed, Z-Jorge, Medrol Dosepak, Naprosyn as prescribed. Follow-up with primary care doctor.. Return if any concerns worsening symptoms. Please go over all results of today's visit with your primary care doctor. Contact your primary care doctor to let them know you were here in the emergency room. There may be nonspecific findings which may not be related to your visit today here in the emergency room but may require further evaluation and chronic monitoring by your primary care doctor. If you had a laceration today the chance of foreign body always remains. You should follow-up with your primary care doctor for recheck in 3-5 days for a wound check. If you had an x-ray done there is a chance that a fracture could have been missed on initial read and you should follow-up with your primary care doctor for repeat x-rays if symptoms persist. If your blood pressure was elevated here in the emergency room please have rechecked by her primary care doctor within the next 48 hours by your primary care doctor. If you were prescribed a narcotic here in the emergency room or any type of controlled substances you're not allowed to drive while taking this medication or operate any type of heavy machinery. Narcotics can make you feel lightheaded dizziness nausea and can cause constipation. You may need to order picker/assembler a stool softener. Thank you for choosing [facility] emergency room. Please return to the emergency room immediately if you have any other concerns worsening of symptoms. Departure Forms: Customer Survey General Discharge Information Prescriptions: Current Visit Scripts Naproxen (Naprosyn) 1 TAB PO BID #20 TAB Methylprednisolone. (Medrol) 1 DP PO AD #1 DP 6 on day 1 then reduce by one tablet daily until gone Promethazine HCl/Codeine (Prometh-Codein 6.25-10 MG/5 Ml) 5 ML PO Q6P PRN COUGH #100 ML Azithromycin (Zithromax) 1 DP PO AD #6 TAB 2 the first day followed by 1 for days 2-5 (LIZ GUY) PA/SOLAR PHOTOVOLTAIC ELECTRICIAN Co-Sign Statement Statement: ED Attending supervision documentation- [] I saw and evaluated the patient. I have also reviewed all the pertinent lab results and diagnostic results. I agree with the findings and the plan of care as documented in the PA's/SOLAR PHOTOVOLTAIC ELECTRICIAN's documentation. [x] I have reviewed the ED Record and agree with the PA's/SOLAR PHOTOVOLTAIC ELECTRICIAN's documentation. [] Additions or exceptions (if any) to the PAs/SOLAR PHOTOVOLTAIC ELECTRICIAN's note and plan are summarized below: [] (CHRISTIANO TONG,MO Minor) Critical Care Note Critical Care Note Critical Care Time: non-applicable (LIZ GUY)
[2017-01-06 00:31] VITALS: BP 152/83
== END 2017-01-06 00:37 ==
LOC: ERH 22:55
DX: J40 Bronchitis, not specified as acute or chronic (principal); M54.40 Lumbago with sciatica, unspecified side; Z72.0 Tobacco use
CPT/HCPCS: 96372; J1885

== ENCOUNTER 2017-08-05 12:43 | Emergency (ER) | payer OTHER ==
[~2017-08-05] VITALS: Ht 162.6 cm; Wt 77.1 kg
[~2017-08-05 12:43] MED LIST changes: +CHERATUSSIN AC118 M1 PO; +CLARINEX5 M1 PO; +CYCLOBENZAPRINE10 M1 PO; +FLONASE ALLERG9.9 ML NAS; +MOBIC15 M1 PO; +PATADAY2.5 ML OPH; +PROMETH-CODEIN 65 ML PO; +PROVENTIL HFA6.7 GM INH; +VIGAMOX3 ML OPH
[2017-08-05 12:58] VITALS: BP 129/82
== END 2017-08-05 15:44 | disposition admitted as inpatient to this hospital (09) ==
LOC: ERH 12:43
DX: M54.31 Sciatica, right side (principal)

== ENCOUNTER 2017-09-24 21:06 | Inpatient (IN) | payer OTHER ==
[~2017-09-24] VITALS: Ht 162.6 cm; Wt 77.6 kg
--- NOTE | 2017-09-24 22:37 | ED GI/GU/ABDOMINAL COMPLAINT ---
History of Present Illness General Chief Complaint: Nausea, Vomiting, Diarrhea Stated Complaint: DIARRHEA,DIZZINESS, NAUSEA X TODAY Source: patient Exam Limitations: no limitations Vital Signs & Intake/Output Vital Signs & Intake/Output Vital Signs Date Time Temp Pulse Resp B/P B/P Pulse O2 O2 Flow FiO2 Mean Ox Delivery Rate 09/25 05 98.3 74 18 165/89 96 Room Air 09/25 0333 96.7 75 20 186/86 98 Room Air 09/25 0131 Room Air 09/24 2357 96.0 67 20 194/82 98 Room Air 09/24 2112 96.4 84 18 180/91 97 Room Air ED Intake and Output 09/25 0000 09/24 1200 Intake Total 1000 Output Total Balance 1000 Intake, IV 1000 Patient 171 lb Weight Allergies Coded Allergies: NO KNOWN ALLERGIES (09/17/16) Triage Note: PT TO TRIAGE C/O N/D THAT BEGAN THIS MORNING, ASSOCIATED WITH DIZZINESS AND DIFFUSE ABD PAIN. HX:CHRONS BUT STATES THIS FEELS NOTHING LIKE IT PER PT. Triage Nurses Notes Reviewed? yes ? N Is pt currently ? No Onset: Gradual Duration: day(s): (1) Timing: remote history Quality/Severity: cramping Severity Numbers: 6 Location: generalized abdomen Radiation: no radiation Activities at Onset: none No Modifying Factors: none HPI: Patient is a 62-year-old female with history of sciatica, daily smoker presenting to the emergency department with chief complaint of flaring up of her sciatica, left side over the past 1-2 days. Pain radiates from the left ventricular back down the left upper leg. Patient denies any associated numbness or tingling. She usually comes the emergency Department and they give her shot of Toradol which helps. Patient also reporting that since this morning she's had diarrhea. Approximately 10 episodes of nonbloody very loose watery stool. Denies fevers but reports chills today. Denies chest pain or palpitations. Intimately productive cough times one day. Positive smoker. NO BLOOD IN STOOL. (Linette Sinclair) Reconcile Medications Albuterol Sulfate (Proventil Hfa) 90 MCG HFA.AER.AD 2 PUF INH Q4 COUGH Cyclobenzaprine HCl 10 MG TABLET 1 TAB PO TID SPASMS Desloratadine (Clarinex) 5 MG TABLET 1 TAB PO DAILY ALLERGIES Duloxetine HCl 30 MG CAPSULE.DR 1 CAP PO BEDTIME Neuropathy Fluticasone Propionate (Flonase Allergy Relief) 50 MCG/ACTUATION SPRAY.SUSP 2 SPRAY NICOLASA DAILY PRN CONGESTION Meloxicam (Mobic) 15 MG TABLET 1 TAB PO DAILY PRN pain Moxifloxacin Hydrochloride (Vigamox) 0.5 % DROPS 1 GTT OPH TID CONJUNCTIVITIS Olopatadine HCl (Pataday) 0.2 % DROPS 1 GTT OPH DAILY ALLERGIC CONJUNCTIVITIS Pantoprazole Sodium 40 MG TABLET.DR 1 TAB PO DAILY GERD (Reported) (Tova TONG,[facility]) Past History Travel History Traveled to [place] past 21 day No Medical History Any Pertinent Medical History? see below for history Neurological: NONE EENT: NONE Cardiovascular: NONE Respiratory: NONE Gastrointestinal: Crohn's disease, GERD Hepatic: NONE Renal: NONE Musculoskeletal: chronic back pain, sciatica Psychiatric: NONE Endocrine: NONE Blood Disorders: NONE Cancer(s): NONE HEEL SORTER/Reproductive: NONE History of MRSA: No History of VRE: No History of CDIFF: No Surgical History Surgical History: COLON RESECTION Psychosocial History Who do you live with Family What is your primary language [facility] Tobacco Use: Current Daily Use Daily Tobacco Use Amount/Type: =< 4 Cigarettes daily Family History Family History, If Any: Relation not specified for: *No pertinent family history Hx Contributory? No (Linette Sinclair) Review of Systems Review of Systems Constitutional: Reports: see HPI, chills. Comments Review of systems: See HPI, All other systems negative. Constitutional, no fever or weight loss HEENT: No visual changes no sore throat no congestion Cardiovascular: No chest pain ,palpitation , orthopnea or ankle swelling Skin, no jaundice no rashes Respiratory: No dyspnea or hemoptysis GI:no vomiting : No dysuria No hematuria Muscle skeletal: no back pain, no neck pain, Neurologic: No numbness no confusion NO SHEPHERD Psych: No stress anxiety or depression,. Heme/endocrine: No bruising no bleeding no polyuria or polydipsia Immunology: No splenectomy or history of AIDS (Linette Sinclair) Physical Exam Physical Exam General Appearance: well developed/nourished, no apparent distress, alert, awake , comfortable Gastrointestinal: normal bowel sounds, soft, non-tender Comments: Well-developed well-nourished person in no acute distress HEENT: Pupils equally round and reactive to light and accommodation. Nose is atraumatic. External auditory canal and Tympanic membranes clear. Pharynx normal. No swelling or edema. Neck: Normal inspection Back: Nontender, no CVA tenderness. Negative straight leg raise bilaterally. Cardiovascular: Regular rate and rhythms no murmurs rubs or gallops Respiratory: No respiratory distress.breath sounds slightly diminished to auscultation bilaterally AT THE BASES. Abdomen: Soft, nontender nondistended, no appreciable organomegaly. Normal bowel sounds. No ascites, no rebound or guarding. Extremity: No edema, full range of motion of upper and lower extremities that difficulty or pain. Neuro: Alert oriented x3, motor sensory normal, cranial nerves II through XII grossly intact. Patellar reflexes are 2+ bilaterally. Skin: No appreciable rash on exposed skin, skin is warm and dry. Psych: Mood and affect is normal, memory and judgment is normal. Core Measures ACS in differential dx? No Sepsis Present: No Sepsis Focused Exam Completed? No (Destin ZARAGOZA,Linette) Progress Differential Diagnosis: esophageal varices, EXACERBATION SCIATICA, BRONCHITIS, PNEUMONIA, GASTRITIS, ENTERITIS, DIVERTICULITIS Plan of Care: Orders Procedure Date/time Status TROPONIN LEVEL 09/25 0600 Active MAGNESIUM 09/25 0600 Active EKG 09/25 0600 Active US-TRANSVAGINAL 09/25 0523 Active BASIC ELECTROLYTES PLUS BUN&CR 09/25 0500 Active Add-on Test (ER Only) 09/25 0358 Active Pathway - chart 09/25 0332 Active House Staff 09/25 0332 Active Patient Data 09/25 0332 Active CBC WITHOUT DIFFERENTIAL 09/25 0332 Complete Code Status 09/25 0332 Active Patient Data 09/25 0302 Active Add-on Test (ER Only) 09/25 0147 Active LACTIC ACID 09/25 0137 Complete ED Holding Orders 09/25 0105 Active Admit to inpatient 09/25 0105 Active Vital Signs 09/25 0105 Active Code Status 09/25 0105 Complete THYROID STIMULATING HORMONE 09/25 0006 Active MAGNESIUM 09/25 0006 Active VTE Mechanical Prophylaxis 09/25 UNK Active MISTAKE 09/25 UNK Active Telemetry/Color Maker Dyer 09/25 UNK Active Intake & Output 09/24 2339 Active RAPID VIRAL INFLUENZA A 09/24 2335 Complete Add-on Test (ER Only) 09/24 2330 Active MISTAKE 09/24 2330 Active EKG 09/24 233 Active TROPONIN LEVEL 09/24 2328 Active LACTIC ACID 09/24 232 Complete CULTURE,STOOL 09/24 231 Active C.DIFFICILE 09/24 2316 Active LIPASE 09/24 2236 Active COMPREHENSIVE METABOLIC PANEL 09/24 2236 Active CBC WITHOUT DIFFERENTIAL 09/24 2236 Complete AMYLASE 09/24 2236 Active URINALYSIS 09/24 2116 Complete Current Medications Sig/T[place]on Start time Last Medication Dose Stop Time Status Admin Enoxaparin Sodium 40 MG DAILY 09/25 1000 AC (Lovenox) Nicotine 21 MG DAILY 09/25 1000 CAN (Nicoderm) Dextrose/Sodium 1,000 ML Q20H 09/25 0345 AC 09/25 Chloride 0512 (D5W-1/2 Normal Saline 1000ML) Laboratory Tests 09/25/17 0500: Sodium Pending, Potassium Pending, Chloride Pending, Carbon Dioxide Pending, Anion Gap Pending, BUN Pending, Creatinine Pending, BUN/Creatinine Ratio Pending , Magnesium Pending, Troponin I Pending 09/25/17 0500: Sodium Cancelled, Potassium Cancelled, Chloride Cancelled, Carbon Dioxide Cancelled, Anion Gap Cancelled, BUN Cancelled, Creatinine Cancelled, BUN/ Creatinine Ratio Cancelled, CBC w Diff NO MAN DIFF REQ, RBC 4.03 L, MCV 92.2, MCH 30.9, MCHC 33.5, RDW 15.7 H, MPV 7.1 L, Gran % 59.9, Lymphocytes % 29.3, Monocytes % 9.1, Eosinophils % 1.3, Basophils % 0.4, Absolute Granulocytes 3.9, Absolute Lymphocytes 1.9, Absolute Monocytes 0.6, Absolute Eosinophils 0.1, Absolute Basophils 0 09/25/17 0126: Lactic Acid 1.3 09/25/17 0044: Urine Color STRAW, Urine Clarity CLEAR, Urine pH 7.0, Ur Specific Agate 1.015, Urine Protein NEG, Urine Ketones NEG, Urine Nitrite NEG, Urine Bilirubin NEG, Urine Urobilinogen 0.2, Ur Leukocyte Esterase NEG, Ur Microscopic SEDIMENT EXAMINED, Urine RBC 1-3, Ur Epithelial Cells FEW, Urine Mucus FEW, Urine Hemoglobin SMALL H, Urine Glucose NEG 09/25/17 0006: Anion Gap 9, Estimated GFR > 60, BUN/Creatinine Ratio 17.5, Glucose 80, Calcium 7.5 L, Magnesium 1.6, Total Bilirubin < 0.1 L, AST 10 L, ALT 19, Alkaline Phosphatase 84, Troponin I < 0.01, Total Protein 4.5 L, Albumin 2.6 L, Globulin 1.9, Albumin/Globulin Ratio 1.4, Amylase 45, Lipase 93, TSH Pending 09/24/172327: Lactic Acid 3.6 H, CBC w Diff NO MAN DIFF REQ, RBC 4.52, MCV 92.9, MCH 30.5, MCHC 32.8 L, RDW 15.3 H, MPV 7.1 L, Gran % 57.3, Lymphocytes % 32.4, Monocytes % 8.6, Eosinophils % 1.1, Basophils % 0.6, Absolute Granulocytes 3.7, Absolute Lymphocytes 2.1, Absolute Monocytes 0.6, Absolute Eosinophils 0.1, Absolute Basophils 0 Microbiology 09/25 2335 NASOPHARYN: Influenza Virus A & B Rapid Smear - COMP 09/24 2316 STOOL: Clostridium difficile Toxin A & B - ORD 09/24 2316 STOOL: Stool Culture - ORD Diagnostic Imaging: Viewed by Me: Radiology Read, CT Scan. Discussed w/RAD: Radiology Read, CT Scan. Radiology Impression: PATIENT: ASHLEY BRANDON PRESENT AGE: 62 PATIENT ACCOUNT NO: [id number] : 57 LOCATION: [facility] ORDERING PHYSICIAN: Linette ZARAGOZA SERVICE DATE: 09/24/17 EXAM TYPE: RAD - XRY-CHEST XRAY, TWO VIEWS EXAMINATION: XR CHEST CLINICAL INFORMATION : Cough. COMPARISON: None TECHNIQUE: 2 views of the chest were obtained. FINDINGS: There is a small hiatal hernia. The lungs are clear. There is no pleural effusion or pneumothorax. The cardiac size is normal. The cardiomediastinal contours are normal. IMPRESSION: There is no acute abnormality of the chest. DICTATED BY: Jensen Mcclain MD DATE/TIME DICTATED:09/24/172353 GRAIN BROKER AND MARKET OPERATOR:GIO DATE/TIME TRANSCRIBED:09/24/172353 CONFIDENTIAL, DO NOT COPY WITHOUT APPROPRIATE AUTHORIZATION. <Electronically signed in Other Vendor System> SIGNED BY: Jensen Mcclain MD 09/24/172357 Initial ED EKG: SINUS RHYTHM, 66 BPM, BORDERLINE t ABNORMALITIES Prior EKG: changed (Destin ZARAGOZA,Linette) Radiology Impression: PATIENT: ASHLEY BRANDON PRESENT AGE: 62 PATIENT ACCOUNT NO: [id number] : 59 LOCATION: [facility] ORDERING PHYSICIAN: Linette ZARAGOZA SERVICE DATE: 09/25/170025 EXAM TYPE: CAT - CT ABD & PELVIS W IV CONTRAST EXAMINATION: CT ABDOMEN AND PELVIS WITH CONTRAST CLINICAL INFORMATION: Abdominal pain, diarrhea COMPARISON: 2014 TECHNIQUE: Multidetector volumetric imaging was performed of the abdomen and pelvis following IV administration of 95 mL of Optiray 320 intravenous contrast. Sagittal and coronal reformatted images were obtained on the technologist's workstation. DLP: 377 mGy-cm FINDINGS: LUNG BASES: The visualized lung bases are unremarkable. LIVER, GALLBLADDER, AND BILIARY TREE: The liver is normal in size, shape, and attenuation. There is a subcentimeter hypoattenuating lesion near the dome of the liver which is too small to characterize. No biliary ductal dilatation is present. The gallbladder is unremarkable with no evidence of radiopaque gallstones, gallbladder wall thickening, or obvious pericholecystic inflammatory changes. PANCREAS: Unremarkable. SPLEEN: Unremarkable. ADRENAL GLANDS: There is an approximately 1 cm right adrenal nodule which is favored to reflect a lipid rich adenoma when compared to prior noncontrast CT from 03/08/2015; this is also unchanged from earlier contrast enhanced CT of 06/07/2011. The left adrenal gland appears unremarkable. KIDNEYS AND URETERS: The kidneys are normal in size, shape, and attenuation. Small low- density lesions in the upper and lower left kidney likely reflect cysts. No hydronephrosis, hydroureter, or calculi seen. No perinephric stranding. BLADDER: Unremarkable. GASTROINTESTINAL TRACT: A small hiatal hernia is present. An enterocolonic anastomosis is present in the right abdomen. No evidence of bowel obstruction. Assessment for wall thickening in some segments of the colon is limited due to luminal collapse, though no significant pericolonic stranding is seen to strongly suggest acute colitis. Prominence of submucosal fat is noted in the rectum, suggesting sequelae of prior inflammation. No free air is seen. ABDOMINAL WALL: There is a small fat-containing umbilical hernia. LYMPH NODES: Normal. VASCULAR: There is atherosclerotic calcification along the aorta. PELVIC VISCERA: The uterus appears atrophic or partially resected. There is a simple fluid density structure in the right aspect of the posterior pelvis measuring approximately 6.7 x 2.5 cm in the axial plane on image 66/87 and 4.4 cm in craniocaudal dimension, new from prior. OSSEOUS STRUCTURES: Degenerative changes are noted in the spine. IMPRESSION: 1. No convincing evidence for colitis. 2. Small hiatal hernia. 3. Simple fluid density structure in the right posterior pelvis measuring 6.7 x 2.5 x 4.4 cm, new from prior. This could represent an ovarian cyst, if there has not been prior oophorectomy. A paraovarian cyst is also a possibility. Since this is new from prior, further assessment with pelvic ultrasound is advised. DICTATED BY: Sharif Castillo MD DATE/TIME DICTATED:241 GRAIN BROKER AND MARKET OPERATOR:GIO DATE/TIME TRANSCRIBED:09/25/17241 CONFIDENTIAL, DO NOT COPY WITHOUT APPROPRIATE AUTHORIZATION. <Electronically signed in Other Vendor System> SIGNED BY: Sharif Castillo MD 09/25/17 0257 (Tova TONG,Cristina) Departure Departure Time of Disposition: 99 Disposition: STILL A PATIENT Condition: Stable Departure Forms: Customer Survey General Discharge Information Admission Note Spoke With: Shun Morrison MD Documentation of Exam: Documentation of any treatments & extenuating circumstances including Concerns Regarding Discharge (functional status, medication knowledge or non-compliance, living conditions, etc.) that warrant an admission rather than observation: Patient requiring IV hydration, requiring supplemental potassium, serial EKGs, telemetry monitoring secondary to EKG changes, dischargE AT THIS IS MEDICALLY HARMFUL, symptoms could likely worsen. (Linette Sinclair) Departure Clinical Impression Primary Impression: Hypokalemia Secondary Impressions: Acute electrocardiogram changes Diarrhea Qualifiers: Diarrhea type: unspecified type Qualified Code: R19.7 - Diarrhea, unspecified Pelvic mass Referrals: Lawson TONG,[place]ston [place] (PCP/Family) Admission Note Documentation of Exam: Documentation of any treatments & extenuating circumstances including Concerns Regarding Discharge (functional status, medication knowledge or non-compliance, living conditions, etc.) that warrant an admission rather than observation: [ FOLLOW UP PELVIC ULTRASOUND] PA/FLOOR COVERING CONTRACTOR Co-Sign Statement Statement: ED Attending supervision documentation- [X] I saw and evaluated the patient. I have also reviewed all the pertinent lab results and diagnostic results. I agree with the findings and the plan of care as documented in the PA's/FLOOR COVERING CONTRACTOR's documentation. [X] I have reviewed the ED Record and agree with the PA's/FLOOR COVERING CONTRACTOR's documentation. [] Additions or exceptions (if any) to the PAs/FLOOR COVERING CONTRACTOR's note and plan are summarized below: [] (Tova TONG,Cristina)
[2017-09-24 23:33] LABS: ABSOLUTE BASOPHIL COUNT 0 /CUMM (0.0-0.2); ABSOLUTE EOSINOPHIL COUNT 0.1 /CUMM (0.0-0.7); ABSOLUTE GRANULOCYTE CT 3.7 /CUMM (1.4-6.5); ABSOLUTE LYMPH COUNT 2.1 /CUMM (1.2-3.4); ABSOLUTE MONOCYTE COUNT 0.6 /CUMM (0.10-0.60); BASOPHIL % 0.6 % (0.0-2.0); EOSINOPHIL % 1.1 % (0-5); GRANULOCYTE % 57.3 % (42.2-75.2); HEMATOCRIT 41.9 % (37-47); MEAN CORPUSCULAR HGB 30.5 PG (27.0-31.0); MEAN CORPUSCULAR HGB CONC 32.8 G/DL (33.0-37.0); MEAN CORPUSCULAR VOLUME 92.9 FL (81.0-99.0); MEAN PLATELET VOLUME 7.1 FL (7.4-10.4); PLATELET COUNT 307 /CUMM (130-400); RBC DISTRIBUTION WIDTH 15.3 % (11.5-14.5); RED BLOOD CELL CT 4.52 /CUMM (4.20-5.40); WHITE BLOOD CELL COUNT 6.5 /CUMM (4.8-10.8)
--- NOTE | 2017-09-24 23:58 | RADIOLOGY REPORT ---
EXAMINATION: XR CHEST CLINICAL INFORMATION: Cough. COMPARISON: None TECHNIQUE: 2 views of the chest were obtained. FINDINGS: There is a small hiatal hernia. The lungs are clear. There is no pleural effusion or pneumothorax. The cardiac size is normal. The cardiomediastinal contours are normal. IMPRESSION: There is no acute abnormality of the chest.
--- NOTE | 2017-09-25 02:57 | CT SCAN REPORT ---
EXAMINATION: CT ABDOMEN AND PELVIS WITH CONTRAST CLINICAL INFORMATION: Abdominal pain, diarrhea COMPARISON: 03/08/2015 TECHNIQUE: Multidetector volumetric imaging was performed of the abdomen and pelvis following IV administration of 95 mL of Optiray 320 intravenous contrast. Sagittal and coronal reformatted images were obtained on the technologist's workstation. DLP: 377 mGy-cm FINDINGS: LUNG BASES: The visualized lung bases are unremarkable. LIVER, GALLBLADDER, AND BILIARY TREE: The liver is normal in size, shape, and attenuation. There is a subcentimeter hypoattenuating lesion near the dome of the liver which is too small to characterize. No biliary ductal dilatation is present. The gallbladder is unremarkable with no evidence of radiopaque gallstones, gallbladder wall thickening, or obvious pericholecystic inflammatory changes. PANCREAS: Unremarkable. SPLEEN: Unremarkable. ADRENAL GLANDS: There is an approximately 1 cm right adrenal nodule which is favored to reflect a lipid rich adenoma when compared to prior noncontrast CT from 03/08/2015; this is also unchanged from earlier contrast enhanced CT of 06/07/2011. The left adrenal gland appears unremarkable. KIDNEYS AND URETERS: The kidneys are normal in size, shape, and attenuation. Small low-density lesions in the upper and lower left kidney likely reflect cysts. No hydronephrosis, hydroureter, or calculi seen. No perinephric stranding. BLADDER: Unremarkable. GASTROINTESTINAL TRACT: A small hiatal hernia is present. An enterocolonic anastomosis is present in the right abdomen. No evidence of bowel obstruction. Assessment for wall thickening in some segments of the colon is limited due to luminal collapse, though no significant pericolonic stranding is seen to strongly suggest acute colitis. Prominence of submucosal fat is noted in the rectum, suggesting sequelae of prior inflammation. No free air is seen. ABDOMINAL WALL: There is a small fat-containing umbilical hernia. LYMPH NODES: Normal. VASCULAR: There is atherosclerotic calcification along the aorta. PELVIC VISCERA: The uterus appears atrophic or partially resected. There is a simple fluid density structure in the right aspect of the posterior pelvis measuring approximately 6.7 x 2.5 cm in the axial plane on image 66/87 and 4.4 cm in craniocaudal dimension, new from prior. OSSEOUS STRUCTURES: Degenerative changes are noted in the spine. IMPRESSION: 1. No convincing evidence for colitis. 2. Small hiatal hernia. 3. Simple fluid density structure in the right posterior pelvis measuring 6.7 x 2.5 x 4.4 cm, new from prior. This could represent an ovarian cyst, if there has not been prior oophorectomy. A paraovarian cyst is also a possibility. Since this is new from prior, further assessment with pelvic ultrasound is advised.
--- NOTE | 2017-09-25 03:22 | History & Physical ---
SergeWall 09/25/17 0321: General Information and HPI MD Statement: I have seen and personally examined ASHLEY BRANDON and documented this H&P. The patient is a 62 year old F who presented with a patient stated chief complaint of dizziness and diarrhea for 1 day.[]. Source of Information: patient, old records Exam Limitations: no limitations History of Present Illness: 62 YO F smoker with PMH of crohn's disease not on any medication, neuropathic pain, chronic back pain, right hemicolectomy, partial thyroidectomy and GERD came to ED with chief complain of dizziness and diarrhea for last one day. Patient reported that she was in her usual state of health when she noticed loose bowel movement one day back. Patient reported that she had 5-6 bowel movements, watery in consistency and nonbloody. Patient also reported having crampy abdominal pain that got better after the loose bowel movements. Patient also reported having dizziness when she tries to get out of the bed. Patient also reported having nausea but she denied vomiting. Patient denied any chest pain, palpitation, vomiting, sick contact, eating from outside, recent travel, cough, headache, short of breath and dysuria. Patient also reported that she had upper respiratory tract infection couple of weeks back when she went to urgent care and they prescribed her azithromycin. Patient's last echocardiogram was done in 2015 that showed ejection fraction more than 55%. Her last admission was in October 2015 when she presented with numbness and tingling in the face and she was admitted with TIA but neurological consultation was obtained that ruled out TIA because there was no weakness and numbness and tingling was due to neuropathic pain. At that admission patient's gabapentin dose was increased to 600 mg but patient reported that she is not taking gabapentin anymore. ED COURSE: Vitals: Temperature 96.4, pulse 84, respiratory rate 18, blood pressure 185 91, oxygen saturation 97% on room air. Labs: WBC count 6.5, hemoglobin 13.8, hematocrit 41.9, platelet count 307, sodium 141, potassium 2.6, BUN 7, creatinine 0.4, calcium 7.5, total protein 4.5 , albumin 2.6, globulin 1.9, albumin/creatinine ratio 1.4, amylase 45, lipase 93 , BUN/creatinine ratio 17.5, glucose 80, lactic acid 3.6, 1.3 Patient was given IV N/S in ED. Allergies/Medications Allergies: Coded Allergies: NO KNOWN ALLERGIES (09/17/16) Home Med list Albuterol Sulfate (Proventil Hfa) 90 MCG HFA.AER.AD 2 PUF INH Q4 COUGH Cyclobenzaprine HCl 10 MG TABLET 1 TAB PO TID SPASMS Desloratadine (Clarinex) 5 MG TABLET 1 TAB PO DAILY ALLERGIES Duloxetine HCl 30 MG CAPSULE.DR 1 CAP PO BEDTIME Neuropathy Fluticasone Propionate (Flonase Allergy Relief) 50 MCG/ACTUATION SPRAY.SUSP 2 SPRAY NICOLASA DAILY PRN CONGESTION Meloxicam (Mobic) 15 MG TABLET 1 TAB PO DAILY PRN pain Moxifloxacin Hydrochloride (Vigamox) 0.5 % DROPS 1 GTT OPH TID CONJUNCTIVITIS Olopatadine HCl (Pataday) 0.2 % DROPS 1 GTT OPH DAILY ALLERGIC CONJUNCTIVITIS Pantoprazole Sodium 40 MG TABLET.DR 1 TAB PO DAILY GERD (Reported) Past History Travel History Traveled to [place] past 21 day No Medical History Neurological: NONE EENT: NONE Cardiovascular: NONE Respiratory: NONE Gastrointestinal: Crohn's disease, GERD Hepatic: NONE Renal: NONE Musculoskeletal: chronic back pain, sciatica Psychiatric: NONE Endocrine: NONE Blood Disorders: NONE Cancer(s): NONE CARPENTER PROTOTYPE/Reproductive: NONE History of MRSA: No History of VRE: No History of CDIFF: No Surgical History Surgical History: COLON RESECTION Past Family/Social History Family History Relations & Conditions if any Relation not specified for: *No pertinent family history Review of Systems Review of Systems Constitutional: Reports: no symptoms. EENTM: Reports: see HPI. Cardiovascular: Reports: no symptoms. Respiratory: Reports: no symptoms. GI: Reports: diarrhea, nausea. Genitourinary: Reports: no symptoms. Musculoskeletal: Reports: no symptoms. Skin: Reports: no symptoms. Neurological/Psychological: Reports: see HPI. Hematologic/Endocrine: Reports: no symptoms. Exam & Diagnostic Data Last 24 Hrs of Vital Signs/I&O Vital Signs Date Time Temp Pulse Resp B/P B/P Pulse O2 O2 Flow FiO2 Mean Ox Delivery Rate 09/25 0131 Room Air 09/24 2357 96.0 67 20 194/82 98 Room Air 09/24 2112 96.4 84 18 180/91 97 Room Air Intake & Output 09/25 0800 09/25 0000 09/24 1600 Intake Total 1000 Output Total Balance 1000 Intake, IV 1000 Patient 171 lb Weight Physical Exam General Appearance Alert, Oriented X3, Cooperative, No Acute Distress Skin No Rashes Skin Temp/Moisture Exam: Warm/Dry Sepsis Skin Exam (color): Normal for Ethnicity HEENT Atraumatic, PERRLA, EOMI Neck Supple Cardiovascular Normal S1, Normal S2 Lungs Clear to Auscultation, Decreased breath sounds B/L Abdomen Soft, No Tenderness Neurological Normal Speech, Strength at 5/5 X4 Ext, Normal Tone Extremities Grade 1 pedal edema Assessment/Plan Assessment: 62 YO F smoker with PMH of crohn's disease not on any medication, neuropathic pain, chronic back pain, right hemicolectomy, partial thyroidectomy and GERD came to ED with chief complain of dizziness and diarrhea for last one day. We will admit the patient on general medicine floor considering her hypokalemia with EKG changes. Dizziness due to dehydration secondary to Viral gastroenteritis: -Patient's dizziness is probably due to dehydration secondary to viral gastroenteritis. Her diarrhea could also be due to Crohn disease or C. difficile colitis. -Lactic acidosis initially probably due to dehydration. -Orthostatic vitals -IV gentle hydration -Stool for C. difficile considering patient's recent history of antibiotic use. -IV antiemetic as needed. Hypokalemia with EKG changes: -Probably due to diarrheal loss of potassium. -We will repeat the potassium -We will monitor potassium level -We will repeat one more set troponin and EKG to rule out any ischemic cardiac injury or arrhythmias due to hypokalemia. Will continue telemetry monitoring. -EKG on admission was showing T-wave inversion in lead V2 History of partial thyroidectomy: -We will check TSH History of Crohn disease status post right hemicolectomy: -Patient has a history of Crohn disease but she is not taking any medication. -Patient having low total protein and albumin probably due to Crohn disease. Her low calcium level is also due to low protein level. DVT prophylaxis: Mechanical and Lovenox subcutaneous CODE STATUS: Full code As Ranked By This Provider Problem List: 1. Dizziness 2. Diarrhea Qualifiers Diarrhea type: unspecified type Qualified Code: R19.7 - Diarrhea, unspecified 3. Hypokalemia Core Measures/Misc (03/30) Acute Coronary Syndrome ACS Diagnosis: No Congestive Heart Failure Congestive Heart Failure Diagnosis No Cerebrovascular Accident CVA/TIA Diagnosis: No VTE (View Protocol) VTE Risk Factors Age>40 No Mechanical VTE Prophylaxis d/t N/A MechProphylax Ordered No VTE Pharm Prophylaxis d/t NA PharmProphylax ordered Sepsis (View protocol) Sepsis Present: No Sangita Myrick 09/25/17 0357: Resident Review Statement Resident Statement: examined this patient, discussed with international manager, agreed with international manager Other Findings: Patient is 62-year-old female with past medical history significant for lower back pain/sciatica, Crohn's disease status post hemicolectomy, status post partial thyroidectomy came in with chief complaint of dizziness and diarrhea for one day. She had multiple watery stools almost 6-8 today with no evidence of blood in stool. She admits for having nausea but denied vomiting. She felt dizzy on changing posterior twice but denying any syncopal episode, chest pain, palpitations, headache, any urinary complaints. She denied any recent travel, sick contact, eating at restaurant or outside/unusual food. She denied any fever, chills or poor oral intake. She had recent antibiotic use almost 2 weeks ago for upper respiratory tract infection. She admits for abdominal pain which is crampy in nature, intermittent relieved with bowel movement. She is not taking any medications for Crohn's with no history of recent Crohn's flareup. Her vital signs on admission were temperature 96.4, pulse 84, respiratory rate 18, blood pressure 1 8191 and she was saturating 97% on room air. Her labs for WBC count 6.5, hemoglobin 13.8, hematocrit 41.9, platelet count 307 , sodium 141, potassium 2.6, BUN 7, creatinine 0.4, lactic acid 3.6, calcium 7.5 , total protein 4.5 with albumin 2.6, negative troponin, amylase 45, lipase 93. Chest x-ray was negative for any acute pathology CT abdomen pelvis with IV contrast showed no evidence of colitis an incidental finding of 6.7 into 2.5 into 4.4 cm simple fluid most likely ovarian cyst/ paraovarian cyst. On examination Alert and oriented 3 Head atraumatic Oral mucosa Moist Chest clear to auscultate Heart S1, S2 normal with no added sounds Abdomen soft, normal bowel sounds, no organomegaly Extremities shows trace edema Neurological deficit noted on neurological examination. Assessment and plan 62-year-old female with past medical history significant for Crohn's disease status post hemicolectomy no recent flareup, status post partial thyroidectomy, low back pain/Moore with neuropathy came in with chief complaint of multiple watery episodes of diarrhea and dizziness and found to have severe hypokalemia on labs. Problem list 1. Hypokalemia most likely due to diarrhea which is most likely viral gastroenteritis and C. difficile colitis needs to be ruled out 2. History of sciatica/neuropathy 3. History of partial thyroidectomy 4. EKG changes, T-wave inversions in V1 and V2 to change from previous 5. Lactic acidosis Plan 1. We will admit patient on telemetry floor and watch for any arrhythmias 2. Potassium supplement and recheck potassium level in a.m. 3. Serial troponin's and EKGs 4. Orthostatic vital signs. She was given 2 L of normal saline in ED and we will continue gentle IV hydration. '5. Lactic acid was elevated on admission recheck was normal. 6. We will send as stool for C. difficile 7. Encourage oral hydration and antiemetics if needed 8. Reconsult medications in a.m. as patient is not sure of her medications. 9. Please confirm coarse status in a.m. Regular diet Pharmacological DVT prophylaxis Patient is full code Shun Morrison 09/25/17 0612: Attending MD Review Statement Attending Statement Attending MD Statement: examined this patient, discuss w/resident/PA/REPORT WRITER, agreed w/resident/PA/REPORT WRITER, reviewed EMR data (avail), reviewed images, amended to note Attending Assessment/Plan: CC: Abdominal pain and diarrhea PMH: Crohn's disease S/P terminal ileectomy and right hemicolectomy with anastomosis, history of abdominal wall granuloma resection, history of partial thyroidectomy, history of cervical cancer status postradiation, chronic back pain with sciatica Patient came to ER for 1 day history of diarrhea and abdominal pain. She states that she had a 5-6 watery bowel movements today associated with nausea and crampy abdominal pain before every bowel movement. Abdominal pain was relieved after bowel movement. No blood in her bowel movement, no history of vomiting. She had similar symptoms approximately 15 days back for 2-3 days which resolved by itself. Patient has history of Crohn's disease but these symptoms are different according to her, she is not on any medications for Crohn's disease. After episodes of diarrhea patient had 2 episodes of dizziness where she felt almost passing out but did not lose her consciousness or did not fall down. She states that she was abruptly changing her position when she felt dizzy. She denies any chest pain, palpitations during that episode. She denies any travels, or different food intake, sick contacts. She had recently used antibiotics for her URI symptoms. She denies any history of C. difficile. Vitals: Afebrile, pulse in 70s, RR 20, blood pressure 180/91 on arrival, saturating well on room air. On exam: A O 3, cooperative, no acute distress, neck supple, JVD normal, no lymphadenopathy, mucosa moist, no focal neurological deficit, no dependent edema , no obvious skin rashes or inflammation CVS: S1-S2, RRR. RS: Clear to auscultate bilaterally. Abdomen: Soft, NT, ND, bowel sounds present. CXR:There is no acute abnormality of the chest. CT abdomen and pelvis with IV contrast: 1. No convincing evidence for colitis. 2. Small hiatal hernia. 3. Simple fluid density structure in the right posterior pelvis measuring 6.7 x 2.5 x 4.4 cm, new from prior. This could represent an ovarian cyst, if there has not been prior oophorectomy. A paraovarian cyst is also a possibility. Since this is new from prior, further assessment with pelvic ultrasound is advised. Assessment and plan 62-year-old female with past medical history significant for Crohn's disease and chronic back pain presented in ER for 1 day history of diarrhea, 5-6 times, watery, nonbloody, associated with crampy abdominal pain, nausea but no episode of vomiting. After the diarrhea patient noticed 2 episodes of dizziness when she was acutely changing her position but no loss of consciousness or fall. Complete physical examination unremarkable. CT does not show any evidence of colitis. She has significant hypokalemia and lactic acidosis which improved after potassium replacement and IV hydration. She has nonspecific T-wave changes in the ECG, and almost passing out episode would benefit from telemetry monitoring. + Diarrhea with dehydration: Secondary to gastroenteritis + Hypokalemia + Lactic acidosis + Presyncopal secondary to dehydration - Admit to telemetry - Continuous telemetry monitoring - Serial troponin and ECG 2 - Recheck potassium, replete if low - Continue gentle hydration - Continue full liquids by mouth - Follow-up C. difficile - Orthostatic vitals - Patient's meds needs to be confirmed with her daughter in morning - Check TSH - DVT prophylaxis
[2017-09-25 05:11] LABS: ABSOLUTE BASOPHIL COUNT 0 /CUMM (0.0-0.2); ABSOLUTE EOSINOPHIL COUNT 0.1 /CUMM (0.0-0.7); ABSOLUTE GRANULOCYTE CT 3.9 /CUMM (1.4-6.5); ABSOLUTE LYMPH COUNT 1.9 /CUMM (1.2-3.4); ABSOLUTE MONOCYTE COUNT 0.6 /CUMM (0.10-0.60); BASOPHIL % 0.4 % (0.0-2.0); EOSINOPHIL % 1.3 % (0-5); GRANULOCYTE % 59.9 % (42.2-75.2); HEMATOCRIT 37.1 % (37-47); MEAN CORPUSCULAR HGB 30.9 PG (27.0-31.0); MEAN CORPUSCULAR HGB CONC 33.5 G/DL (33.0-37.0); MEAN CORPUSCULAR VOLUME 92.2 FL (81.0-99.0); MEAN PLATELET VOLUME 7.1 FL (7.4-10.4); PLATELET COUNT 276 /CUMM (130-400); RBC DISTRIBUTION WIDTH 15.7 % (11.5-14.5); RED BLOOD CELL CT 4.03 /CUMM (4.20-5.40); WHITE BLOOD CELL COUNT 6.4 /CUMM (4.8-10.8)
--- NOTE | 2017-09-25 06:14 | Admission Certification ---
Admission Certification Certification Statement - As attending physician, I certify that at the time of - admission, based on clinical presentation, severity of - symptoms, need for further diagnostic testing and - therapeutic interventions, and risk of adverse outcomes - without in-hospital treatment, in my clinical assessment, - this patient requires an acute hospital stay for a minimum - of two nights or longer. I have also considered psychsocial - factors such as support system, advanced age, financial - issues, cognitive issues, and failed out-patient treatments, - past re-admission history, safety of patient, and lack of - compliance as applicable. Specific rationale supporting this admission is: Hypokalemia, dehydration, gastroenteritis
--- NOTE | 2017-09-25 10:24 | PN- Housestaff ---
See Addendum Subjective Follow-up For: -Watery diarrhea -Dizziness -Lactic acidosis -Hypokalemia -Incidental right lower abdominal mass on CAT scan Tele-Events Since Last Visit: Normal sinus rhythm, no arrhythmias Subjective: Afebrile, hemodynamically stable, saturating well on room air. Patient denies any current active abdominal pain or dizziness. She reports significant improvement after fluids. She ate breakfast this morning and had formed bowel movement. She ambulates under supervision of the nurse with no complication. Review of Systems Constitutional: Reports: no symptoms, see HPI. Objective Last 24 Hrs of Vital Signs/I&O Vital Signs Date Time Temp Pulse Resp B/P B/P Pulse O2 O2 Flow FiO2 Mean Ox Delivery Rate 09/25 1146 98.5 80 18 180/86 95 Room Air 09/25 1008 97.9 79 20 122/70 97 Room Air 09/25 0728 97.8 76 20 146/80 95 Room Air 09/25 0513 98.3 74 18 165/89 96 Room Air 09/25 0333 96.7 75 20 186/86 98 Room Air 09/25 0131 Room Air 09/24 2357 96.0 67 20 194/82 98 Room Air 09/24 2112 96.4 84 18 180/91 97 Room Air Intake & Output 09/25 1600 09/25 0800 09/25 0000 Intake Total 2000 Output Total Balance 2000 Intake, IV 2000 Patient 77.564 kg Weight Physical Exam General Appearance: Alert, Oriented X3, Cooperative, No Acute Distress Skin: No Rashes HEENT: Atraumatic, PERRLA, EOMI, Mucous Membr. moist/pink Neck: No JVD Cardiovascular: Regular Rate, Normal S1, Normal S2, No Murmurs Lungs: Clear to Auscultation, Normal Air Movement Abdomen: Normal Bowel Sounds, Soft, No Tenderness Neurological: Normal Speech, Strength at 5/5 X4 Ext Extremities: No Clubbing, No Cyanosis, No Edema Current Medications: Current Medications Sig/[place] Start time Last Medication Dose Route Stop Time Status Admin Dextrose/Sodium 1,000 ML Q20H 09/25 0345 AC 09/25 Chloride IV 0512 Enoxaparin Sodium 40 MG DAILY 09/25 1000 AC 09/25 SC 0858 Enoxaparin Sodium 0 .STK-MED ONE 09/25 0902 DC SC Ketorolac 0 .STK-MED ONE 09/24 2336 DC Tromethamine .ROUTE Ketorolac 30 MG ONCE ONE 09/24 2330 DC 09/24 Tromethamine IV 09/24 233 2339 Magnesium Oxide 400 MG ONE ONE 09/25 0345 DC 09/25 PO 09/25 0346 0512 Nicotine 21 MG DAILY 09/25 1000 CAN TOP Nicotine 0 .STK-MED ONE 09/25 0121 DC TOP Nicotine 21 MG ONCE ONE 09/25 0115 DC 09/25 TOP 09/25 0116 0118 Potassium Chloride 0 .STK-MED ONE 09/25 0509 DC PO Potassium Chloride 20 MEQ ONCE ONE 09/25 0400 DC 09/25 PO 09/25 0401 0512 Potassium Chloride 10 MEQ ONCE ONE 09/25 0115 DC 09/25 IV 09/25 0116 0240 Potassium Chloride 0 .STK-MED ONE 09/25 0114 DC PO Potassium Chloride 40 MEQ ONCE ONE 09/25 0100 DC 09/25 PO 09/25 0101 0111 Potassium Chloride 10 MEQ ONCE ONE 09/25 0100 DC 09/25 IV 09/25 0101 0112 Sodium Chloride 1,000 ML BOLUS ONE 09/25 0115 DC 09/25 IV 09/25 0214 0112 Sodium Chloride 1,000 ML BOLUS ONE 09/24 2245 DC 09/24 IV 09/25 0044 2339 Last 24 Hrs of Lab/Robi Results Last 24 Hrs of Labs/Mics: Laboratory Tests 09/25/17 0500: Anion Gap 10, Estimated GFR > 60, BUN/Creatinine Ratio 12.0, Magnesium 1.9, Troponin I < 0.01 09/25/17 0500: Sodium Cancelled, Potassium Cancelled, Chloride Cancelled, Carbon Dioxide Cancelled, Anion Gap Cancelled, BUN Cancelled, Creatinine Cancelled, BUN/ Creatinine Ratio Cancelled, CBC w Diff NO MAN DIFF REQ, RBC 4.03 L, MCV 92.2, MCH 30.9, MCHC 33.5, RDW 15.7 H, MPV 7.1 L, Gran % 59.9, Lymphocytes % 29.3, Monocytes % 9.1, Eosinophils % 1.3, Basophils % 0.4, Absolute Granulocytes 3.9, Absolute Lymphocytes 1.9, Absolute Monocytes 0.6, Absolute Eosinophils 0.1, Absolute Basophils 0 09/25/17 0126: Lactic Acid 1.3 09/25/17 0044: Urine Color STRAW, Urine Clarity CLEAR, Urine pH 7.0, Ur Specific [place] 1.015, Urine Protein NEG, Urine Ketones NEG, Urine Nitrite NEG, Urine Bilirubin NEG, Urine Urobilinogen 0.2, Ur Leukocyte Esterase NEG, Ur Microscopic SEDIMENT EXAMINED, Urine RBC 1-3, Ur Epithelial Cells FEW, Urine Mucus FEW, Urine Hemoglobin SMALL H, Urine Glucose NEG 09/25/17 0006: Anion Gap 9, Estimated GFR > 60, BUN/Creatinine Ratio 17.5, Glucose 80, Calcium 7.5 L, Magnesium 1.6, Total Bilirubin < 0.1 L, AST 10 L, ALT 19, Alkaline Phosphatase 84, Troponin I < 0.01, Total Protein 4.5 L, Albumin 2.6 L, Globulin 1.9, Albumin/Globulin Ratio 1.4, Amylase 45, Lipase 93, TSH 1.160 09/24/178: Lactic Acid 3.6 H, CBC w Diff NO MAN DIFF REQ, RBC 4.52, MCV 92.9, MCH 30.5, MCHC 32.8 L, RDW 15.3 H, MPV 7.1 L, Gran % 57.3, Lymphocytes % 32.4, Monocytes % 8.6, Eosinophils % 1.1, Basophils % 0.6, Absolute Granulocytes 3.7, Absolute Lymphocytes 2.1, Absolute Monocytes 0.6, Absolute Eosinophils 0.1, Absolute Basophils 0 Microbiology 09/24 2336 NASOPHARYN: Influenza Virus A & B Rapid Smear - COMP 09/24 2316 STOOL: Clostridium difficile Toxin A & B - COLB 09/24 2316 STOOL: Stool Culture - COLB Assessment/Plan Assessment: 62 year old female who presented with a chief complaint of abdominal pain and 6 episodes of watery nonbloody diarrhea that started yesterday. The patient also reported feeling dizzy especially with standing from sitting position. She denies nausea, vomiting, fever or chills. On admission she was found to be dehydrated with hypokalemia and lactic acidosis up to 3. Both hypokalemia and lactic acid are most likely secondary to dehydration. After IV fluids and potassium repletion both lactic acid and potassium level were back to normal. Currently she is symptom-free at denies any abdominal pain or dizziness. CT abdomen was done to exclude colitis given the remote history of Crohn's, a came back negative for colitis however an incidental 7 X 2.5 X4.5 CM mass was found. Transvaginal ultrasound was done to further address this mass, it revealed Cystic right adnexal mass may represent a large right-sided hydrosalpinx or a complex cystic mass, such as a cystadenoma or a paraovarian cyst. Assessment and plan #Diarrhea and abdominal pain most likely secondary to gastroenteritis The patient had a lactic acid on admission that was most likely secondary to dehydration, it normalized after IV fluid. Currently the patient denies abdominal pain and she passed a nonbloody formed stool. She is stable for discharge. #Hypokalemia most likely secondary to potassium loss because of diarrhea Resolved with potassium repletion, diarrhea resolved. #Right pelvic mass Incidental complex cyst mass was found on CT, an ultrasound was done to further address this mass. The cause of this mass is unclear, patient will be instructed to follow with primary care doctor and medical accountant within 1 week of discharge. The follow-up importance was emphasized to the patient as this finding has a potential of malignancy. #T wave inversion in V1 and V2 Acute coronary syndrome was ruled out with serial EKG and troponin. The EKG was discussed with cardiology will think it's a benign finding and no further testing is needed. Full code Regular diet DVT prophylaxis with Alps Problem List: 1. GERD 2. Diarrhea 3. Pelvic mass 4. Hypokalemia Pain Ratin Pain Location: Abdomen Pain Goal: Remain pain free Pain Plan: Currently pain-free Tomorrow's Labs & Rationales: No need, most likely discharge today
--- NOTE | 2017-09-25 11:36 | ULTRASOUND REPORT ---
EXAMINATION: ULTRASOUND OF THE PELVIS CLINICAL INFORMATION: Abdominal pain, diarrhea, adnexal mass seen on CT scan. Presumptive diagnosis of mass versus cyst. COMPARISON: The scan of the abdomen and pelvis dated 09/25/2017. Pelvic ultrasound dated 01/10/2011. TECHNIQUE: Transabdominal and transvaginal pelvic ultrasound. A transvaginal study was performed in addition to the transabdominal study which did not yield an adequate examination of the uterus and ovaries due to superimposed distended gas-filled loops of bowel. FINDINGS: Uterus: The uterus is anteverted and normal in size and appearance, measuring 4.6 x 2.0 x 3.5 cm. The endometrial stripe thickness is normal, measuring 0.1 cm in thickness. No focal myometrial mass is seen. The cervical length is normal measuring 1.3 cm. There is some echogenic linear structure seen in the cervix, consistent with the clips previously demonstrated on CT scan. Ovaries: The ovaries bilaterally are visualized. The right ovary is asymmetrically larger than the left ovary, measuring 5.1 x 5.2 x 4.1 cm (56.9 mL volume). There is a 5.2 x 4.7 x 4.7 cm multiloculated hypoechoic cystic mass seen in the right adnexa with thin incomplete septations. Finding may represent a dilated hydrosalpinx versus a complex left ovarian cystic mass or less likely a paraovarian cyst. The left ovary is unremarkable, measuring 1.3 x 0.8 x 1.2 cm (0.65 and mL volume). Other: No free fluid collection seen. IMPRESSION: 1. Cystic right adnexal mass is seen, corresponding to the CT scan findings. Findings may represent a large right-sided hydrosalpinx or a complex cystic mass, such as a cystadenoma or a paraovarian cyst. Clinical correlation and follow-up ultrasound in 4-7 weeks is recommended to document resolution. 2. Left ovary and uterus unremarkable.
[2017-09-25 11:46] VITALS: BP 180/86
--- NOTE | 2017-09-25 12:42 | Patient Discharge Instructions ---
Discharge Instructions General Discharge Information You were seen/treated for: Watery diarrhea, abdominal pain and dizziness. You were found to be dehydrated with elevated lactic acid and low potassium. All blood work up improved after potassium repletion and IV fluid. 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 Please discuss the next step to further address the abdominal mass that was seen on CT and transvaginal ultrasound Acute Coronary Syndrome Inclusion Criteria At DC or during hospital stay patient has or had the following: ACS DIAGNOSIS No Discharge Core Measures Meds if any: Prescribed or Continued at Discharge Meds if any: NOT Prescribed or Continued at Discharge Congestive Heart Failure Inclusion Criteria At DC or during hospital stay patient has or had the following: CHF DIAGNOSIS No Discharge Core Measures Meds if any: Prescribed or Continued at Discharge Meds if any: NOT Prescribed or Continued at Discharge Cerebrovascular accident Inclusion Criteria At DC or during hospital stay patient has or had the following: CVA/TIA Diagnosis No Discharge Core Measures Meds if any: Prescribed or Continued at Discharge Meds if any: NOT Prescribed or Continued at Discharge Venous thromboembolism Inclusion Criteria VTE Diagnosis No VTE Type NONE VTE Confirmed by (Test) NONE Discharge Core Measures - Per Current guidelines, there needs to be overlap - treatment for the first 5 days of Warfarin therapy. - If discharged on Warfarin prior to 5 days of - overlap therapy, the patient will need to be - assessed for post discharge needs including - *Post discharge parental anticoagulation - *Warfarin and/or parental anticoagulation education - *Follow up date to check INR post discharge At least 5 days overlap therapy as Inpatient No Meds if any: Prescribed or Continued at Discharge Note: Overlap Therapy is Warfarin and Anticoagulant Meds if any: NOT Prescribed or Continued at Discharge
--- NOTE | 2017-09-25 12:43 | Discharge Summary ---
Visit Information Visit Dates Admission Date: 09/25/17 Discharge Date: 09/25/17 Hospital Course Course Attending Physician: Uriah Brice MD Primary Care Physician: Lawson TONG,[place] Allergies: Coded Allergies: NO KNOWN ALLERGIES (09/17/16) Discharge Instructions Medications at Discharge Discharge Medications: Stop taking the following medications: Duloxetine HCl (Duloxetine HCl) 30 MG CAPSULE. ORAL BEDTIME Qty = 30 Moxifloxacin Hydrochloride (Vigamox) 0.5 % DROPS In the eye THREE TIMES DAILY Qty = 3 Olopatadine HCl (Pataday) 0.2 % DROPS In the eye DAILY Qty = 1 Fluticasone Propionate (Flonase Allergy Relief) 50 MCG/ACTUATION SPRAY.SUSP In the nose DAILY as needed for CONGESTION Qty = 1 Desloratadine (Clarinex) 5 MG TABLET ORAL DAILY Qty = 20 Meloxicam (Mobic) 15 MG TABLET ORAL DAILY as needed for pain Qty = 14 Albuterol Sulfate (Proventil Hfa) 90 MCG HFA.AER.AD Inhale through mouth Every 4 hours Qty = 1 Continue taking these medications: Pantoprazole Sodium (Pantoprazole Sodium) 40 MG TABLET. 1 Tablet ORAL DAILY Qty = 60 Comments: NOT GIVEN IN HOSPITAL Cyclobenzaprine HCl (Cyclobenzaprine HCl) 10 MG TABLET 1 Tablet ORAL THREE TIMES DAILY Qty = 30 Comments: NOT GIVEN IN HOSPITAL
== END 2017-09-25 13:10 | DRG 422 ==
LOC: ERH 21:06 → ERHI 09-25 01:05
PROVIDERS: Internal Medicine; Physician Assistant
DX: E87.6 Hypokalemia (principal); F17.200 Nicotine dependence, unspecified, uncomplicated; K50.90 Crohn's disease, unspecified, without complications; G62.9 Polyneuropathy, unspecified; M54.9 Dorsalgia, unspecified; Z90.49 Acquired absence of other specified parts of digestive tract; E89.0 Postprocedural hypothyroidism; K21.9 Gastro-esophageal reflux disease without esophagitis; R19.7 Diarrhea, unspecified; Z79.51 Long term (current) use of inhaled steroids; M54.30 Sciatica, unspecified side; E86.0 Dehydration; E87.2 Acidosis; A08.4 Viral intestinal infection, unspecified; R19.03 Right lower quadrant abdominal swelling, mass and lump; Q20.5 Discordant atrioventricular connection
CPT/HCPCS: ERO; 71046; 74177; 81001; 82436; 87045; 87804; 87804-59; 93005; 93010; 96361; 96365; 96374; J1650; J1885; J7042

== ENCOUNTER 2017-10-09 22:57 | Emergency (ER) | payer OTHER ==
[2017-10-09 23:41] VITALS: BP 145/90
== END 2017-10-10 01:45 | disposition admitted as inpatient to this hospital (09) ==
LOC: ERH 22:57
DX: M54.42 Lumbago with sciatica, left side (principal)
CPT/HCPCS: 99281; J1885

== ENCOUNTER 2017-10-29 17:51 | Emergency (ER) | payer OTHER | END 2017-10-29 18:39 | disposition admitted as inpatient to this hospital (09) | LOC: ERH 17:51 | DX: M54.30 Sciatica, unspecified side (principal) ==

== ENCOUNTER 2017-12-13 23:35 | Emergency (ER) | payer OTHER ==
[~2017-12-13] VITALS: Ht 162.6 cm; Wt 77.6 kg
[~2017-12-13 23:35] MED LIST changes: +DICYCLOMINE HCL10 M1 PO
[2017-12-13 23:55] VITALS: BP 150/90
--- NOTE | 2017-12-14 02:49 | ED UPPER/LOWER EXTREMITY COMPL ---
History of Present Illness General Chief Complaint: General Adult Stated Complaint: PER PT SCIATICA IS BOTHERING HER Source: TRIAGE NOTE Exam Limitations: PT NOT IN ROOM Vital Signs & Intake/Output Vital Signs & Intake/Output Vital Signs Date Time Temp Pulse Resp B/P B/P Pulse O2 O2 Flow FiO2 Mean Ox Delivery Rate 12/14 0217 Room Air 12/13 2355 98.3 68 20 150/90 96 Room Air Room Air ED Intake and Output 12/14 0000 12/13 1200 Intake Total Output Total Balance Patient 171 lb Weight Allergies Coded Allergies: NO KNOWN ALLERGIES (09/17/16) Reconcile Medications Cyclobenzaprine HCl 10 MG TABLET 1 TAB PO TID SPASMS Cyclobenzaprine HCl 5 MG TABLET 1 TAB PO TIDPRN PRN PAIN Dicyclomine HCl 10 MG CAPSULE 1 CAP PO TID PRN PAIN Pantoprazole Sodium 40 MG TABLET.DR 1 TAB PO DAILY GERD (Reported) Triage Note: 62YO FEMALE TO TRIAGE W/CO L SCIATICA PAIN TODAY. STATES SHE TOOK FLEXERIL W/OUT RELIEF Triage Nurses Notes Reviewed? yes HPI: Patient presents for evaluation of left sciatica pain. Patient tried Flexeril without improvement. Unfortunately ASHLEY was not in the room when I attempted to evaluate her. Past History Travel History Traveled to [place] past 21 day No Medical History Any Pertinent Medical History? see below for history Neurological: NONE EENT: NONE Cardiovascular: NONE Respiratory: NONE Gastrointestinal: Crohn's disease, GERD Hepatic: NONE Renal: NONE Musculoskeletal: chronic back pain, sciatica Psychiatric: NONE Endocrine: NONE Blood Disorders: NONE Cancer(s): NONE GARBAGE STOKER/Reproductive: NONE History of MRSA: No History of VRE: No History of CDIFF: No Surgical History Surgical History: COLON RESECTION Psychosocial History Who do you live with Family What is your primary language [facility] Tobacco Use: Current Daily Use Daily Tobacco Use Amount/Type: => 5 Cigarettes daily Family History Family History, If Any: Relation not specified for: *No pertinent family history Hx Contributory? No Review of Systems Review of Systems Constitutional: Reports: see HPI. Physical Exam Physical Exam General Appearance: PATIENT NOT IN ROOM Progress Differential Diagnosis: arterial insufficiency, cellulitis, contusion, DVT, sprain Plan of Care: PT NOT IN ROOM FOR CARE PLAN Comments: 12/14/2017 2:49:13 AM no one in the room. Departure Departure Disposition: LEFT AGAINST MEDICAL ADVICE Condition: Stable Clinical Impression Primary Impression: Pain of left lower extremity Referrals: Lawson TONG,[place] (PCP/Family) Departure Forms: Customer Survey General Discharge Information
[2017-12-21] MEDS ORDERED: FERROUS SULFAT324 MG (14:58)
[2017-12-21] MEDS ORDERED: CYCLOBENZAPRINE5 M2 PO (15:16)
[2017-12-21] MEDS ORDERED: MOBIC15 M1 PO (15:16)
== END 2017-12-14 02:56 | disposition admitted as inpatient to this hospital (09) ==
LOC: ERH 23:35
DX: R52 Pain, unspecified (principal); Z53.21 Procedure and treatment not carried out due to patient leaving prior to being seen by health care provider

== ENCOUNTER 2018-03-18 09:48 | Emergency (ER) | payer OTHER ==
[~2018-03-18 09:48] MED LIST changes: +FERROUS SULFAT324 MG PO; +FOLIC ACID1 M1 PO; +LIDODERM1 EACH TOP; +PROTONIX40 M3 PO
[2018-03-18 09:50] VITALS: BP 147/82
[2018-03-18] MEDS ORDERED: LIDODERM1 EACH TOP (10:58)
[2018-03-18] MEDS ORDERED: CYCLOBENZAPRINE10 M1 PO (10:58)
[2018-03-18] MEDS ORDERED: ZITHROMAX250 M2 PO (10:58)
[2018-03-18] MEDS ORDERED: PROVENTIL HFA6.7 GM INH (10:58)
--- NOTE | 2018-03-18 10:58 | ED NECK/BACK PAIN COMPLAINT ---
History of Present Illness General Chief Complaint: Low Back Pain/Injury Stated Complaint: BACK PAIN Source: patient Exam Limitations: no limitations Vital Signs & Intake/Output Vital Signs & Intake/Output Vital Signs Date Time Temp Pulse Resp B/P B/P Pulse O2 O2 Flow FiO2 Mean Ox Delivery Rate 03/18 0950 98.2 89 16 147/82 96 Room Air Allergies Coded Allergies: NO KNOWN ALLERGIES (09/17/16) Reconcile Medications Albuterol Sulfate (Proventil Hfa) 90 MCG HFA.AER.AD 2 PUF INH Q4 COUGH Azithromycin (Zithromax) 250 MG TABLET 1 DP PO AD BRONCHITIS 2 the first day followed by 1 for days 2-5 Cyclobenzaprine HCl 10 MG TABLET 1 TAB PO TID SPASMS Cyclobenzaprine HCl 10 MG TABLET 1 TAB PO QPM PRN pain Ferrous Sulfate 324 MG (65 MG IRON) TABLET.DR 1 TAB PO DAILY SUPPLEMENT ( Reported) Folic Acid 1 MG TABLET 1 TAB PO DAILY SUPPLEMENT (Reported) Lidocaine (Lidoderm) 5 % ADH..PATCH 1 PAT TOP DAILY PAIN may wear up to 12 hours Lidocaine (Lidoderm) 5 % ADH..PATCH 1 PAT TOP DAILY PRN pain may wear up to 12 hours Methylprednisolone. (Medrol) 4 MG TAB.DS.PK 1 DP PO AD sciatica 6 on day 1 then reduce by one tablet daily until gone Pantoprazole Sodium (Protonix) 40 MG TABLET.DR 1 TAB PO PRN GI (Reported) Triage Note: PT TO ED C/O SCIATICA PAIN. HAS HX OF SAME. IS ALSO C/O HEAD CONGESTION AND EAR PAIN. Triage Nurses Notes Reviewed? yes Onset: Abrupt Duration: day(s):, constant Timing: recent history Quality/Severity: moderate Location: lumbar spine HPI: 62-year-old female comes into the emergency room with complaints of low back pain. Patient has a history of chronic low back pain issues with sciatica. Patient reports that this pain is been going on for the past 3 days. Pain is worse with movement. Radiates down her legs. Feels consistent with her previous back pain. Denies any urinary bowel dysfunction. Denies any other system symptoms. (Jose Dee) Past History Travel History Traveled to [place] past 21 day No Medical History Any Pertinent Medical History? 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 No (Jose Dee) Review of Systems Review of Systems Constitutional: Reports: no symptoms. Eyes: Reports: no symptoms. Ears, Nose, Throat, Mouth: Reports: no symptoms. Respiratory: Reports: no symptoms. Cardiovascular: Reports: no symptoms. Gastrointestinal/Abdominal: Reports: no symptoms. Musculoskeletal: Reports: see HPI. Skin: Reports: no symptoms. Neurological/Psychological: Reports: no symptoms. All Other Systems: Reviewed and Negative (Jose Dee) Physical Exam Physical Exam General Appearance: well developed/nourished Head: atraumatic Eyes: Bilateral: PERRL, EOMI. Ears, Nose, Throat, Mouth: hearing grossly normal Neck: normal inspection Respiratory: no respiratory distress Back: normal inspection, tenderness across lower back, Extremities: normal range of motion Motor: Deficit L4 Right: No Deficit L4 Left: No Deficit L5 Right: No Deficit L5 Left: No Deficit S1 Right: No Deficit S1 Right: No Neurologic/Psych: awake, alert, oriented x 3, normal mood/affect Skin: intact, normal color, warm/dry Core Measures CVA/TIA Diagnosis: No (Jose Dee) Progress Differential Diagnosis: cauda equina syn, herniated disc, myofascial strain, pyelo/UTI, sciatica Plan of Care: Current Medications Sig/T[place]on Start time Last Medication Dose Stop Time Status Admin Ketorolac 30 MG ONCE ONE 03/18 1100 AC Tromethamine 03/18 1101 (Toradol) Methylprednisolone 125 MG ONCE ONE 03/18 1100 AC (Solu Medrol) 03/18 1101 (Jose Dee) Departure Departure Disposition: HOME OR SELF CARE Condition: Stable Clinical Impression Primary Impression: Acute exacerbation of chronic low back pain Referrals: Lawson TONG,[place] (PCP/Family) Additional Instructions: Take Flexeril, Lidoderm patch, Z-Jorge, albuterol as prescribed. Follow-up with PCP. Please go over all results of today's visit with your primary care doctor. Contact your primary care doctor to let them know you were here in the emergency room. There may be nonspecific findings which may not be related to your visit today here in the emergency room but may require further evaluation and chronic monitoring by your primary care doctor. If you had a laceration today the chance of foreign body always remains. You should follow-up with your primary care doctor for recheck in 3-5 days for a wound check. If you had an x-ray done there is a chance that a fracture could have been missed on initial read and you should follow-up with your primary care doctor for repeat x-rays if symptoms persist. If your blood pressure was elevated here in the emergency room please have rechecked by sophie primary care doctor within the next 48. If you were prescribed a narcotic here in the emergency room or any type of controlled substances you're not allowed to drive while taking this medication or operate any type of heavy machinery. Narcotics can make you feel lightheaded dizziness nausea and can cause constipation. You may need to order picker/assembler a stool softener. Thank you for choosing [facility] emergency room. Please return to the emergency room immediately if you have any other concerns worsening of symptoms. Departure Forms: Customer Survey General Discharge Information Prescriptions: Current Visit Scripts Cyclobenzaprine HCl 1 TAB PO TID #60 TAB Lidocaine (Lidoderm) 1 PAT TOP DAILY #30 PAT may wear up to 12 hours Azithromycin (Zithromax) 1 DP PO AD #6 TAB 2 the first day followed by 1 for days 2-5 Albuterol Sulfate (Proventil Hfa) 2 PUF INH Q4 #1 INHAL (Jose Dee) PA/VETERINARY ANATOMIST Co-Sign Statement Statement: ED Attending supervision documentation- I saw and evaluated the patient. I have also reviewed all the pertinent lab results and diagnostic results. I agree with the findings and the plan of care as documented in the PA's/VETERINARY ANATOMIST's documentation. x I have reviewed the ED Record and agree with the PA's/VETERINARY ANATOMIST's documentation. [] Additions or exceptions (if any) to the PAs/VETERINARY ANATOMIST's note and plan are summarized below: [] (Oni TONG,Miquel)
== END 2018-03-18 11:17 ==
LOC: ERH 09:48
DX: M54.5 Low back pain (principal); R52 Pain, unspecified; G89.29 Other chronic pain
CPT/HCPCS: 96372; J1885; J2930